=== PATIENT | male | born 1955 | race Caucasian/White ===

== ENCOUNTER 2019-06-29 10:49 | Outpatient (RCR) | payer MEDICARE, OTHER, SELFPAY | END 2019-07-27 00:01 | LOC: GILAB 10:49 | PROVIDERS: Family Provider Family Medicine; Visit Provider Internal Medicine Pulmonary Disease | DX: J45.40 Moderate persistent asthma, uncomplicated (principal); J45.50 Severe persistent asthma, uncomplicated | CPT/HCPCS: 96372 ×4; G0463 ==

== ENCOUNTER 2019-08-10 10:48 | Outpatient (RCR) | payer MEDICARE, OTHER, SELFPAY ==
[2019-08-10 11:01] VITALS: BMI 25.8
[2019-08-10 11:05] VITALS: BP 127/78; PULSE 91; RESP 18; TEMP 36.9; O2SAT 95
[2019-08-10] MEDS: omalizumab 150 mg SDV 375 MG SUBCUT (11:35)
[2019-08-24 11:11] VITALS: BP 122/79; PULSE 72; RESP 18; TEMP 36.6; O2SAT 97
[2019-08-24] MEDS: omalizumab 150 mg SDV 375 MG SUBCUT (11:19)
== END 2019-08-27 23:59 | disposition home or self-care (01) ==
LOC: GILAB 10:48
PROVIDERS: Family Provider Family Medicine; PCP Family Medicine; Visit Provider Internal Medicine Pulmonary Disease
DX: J45.40 Moderate persistent asthma, uncomplicated (principal)
CPT/HCPCS: 96372; J2357

== ENCOUNTER 2019-09-07 11:17 | Outpatient (RCR) | payer MEDICARE, OTHER, SELFPAY ==
[2019-09-07 11:32] VITALS: BP 118/77; PULSE 70; RESP 16; TEMP 36.9; O2SAT 96
[2019-09-21 11:07] VITALS: BP 144/88; PULSE 68; RESP 20; TEMP 37.2; O2SAT 95
[2019-09-21] MEDS: omalizumab 150 mg SDV 375 MG SUBCUT (11:08)
== END 2019-09-25 23:59 | disposition home or self-care (01) ==
LOC: GILAB 11:17
PROVIDERS: Family Provider Family Medicine; PCP Family Medicine; Visit Provider Internal Medicine Pulmonary Disease
DX: J45.909 Unspecified asthma, uncomplicated (principal)
CPT/HCPCS: 96372

== ENCOUNTER 2019-10-05 10:52 | Outpatient (RCR) | payer MEDICARE, OTHER, SELFPAY ==
[2019-10-05 11:14] VITALS: BP 147/79; PULSE 84; RESP 18; TEMP 36.2; O2SAT 97; BMI 25.8
[2019-10-05] MEDS: omalizumab 150 mg SDV 375 MG SUBCUT (11:21)
== END 2019-10-26 23:59 | disposition home or self-care (01) ==
LOC: GILAB 10:52
PROVIDERS: Family Provider Family Medicine; PCP Family Medicine; Visit Provider Internal Medicine Pulmonary Disease
DX: J45.909 Unspecified asthma, uncomplicated (principal)
CPT/HCPCS: 96372

== ENCOUNTER 2019-10-19 10:50 | Outpatient (CLI) | payer MEDICARE, OTHER, SELFPAY ==
[2019-10-19 11:02] VITALS: BP 119/84; PULSE 81; RESP 18; TEMP 36.6; O2SAT 97
[2019-10-19] MEDS: omalizumab 150 mg SDV 375 MG SUBCUT (11:08)
--- NOTE | 2019-10-19 11:08 | PC.NURSE ---
Administered 3 SQ injections, 2 left Lower Quad, 1 SQ Right Lower Quad. Tolerated without difficulty. Free Medication administered.
[2019-10-19 11:09] VITALS: BP 138/86; PULSE 76
== END 2019-10-19 10:51 | disposition home or self-care (01) ==
LOC: RHEOACUTE 10:51
PROVIDERS: Family Provider Family Medicine; PCP Family Medicine; Visit Provider Internal Medicine Rheumatology
DX: J45.50 Severe persistent asthma, uncomplicated (principal)
CPT/HCPCS: 96372; J2357

== ENCOUNTER 2019-11-02 10:49 | Outpatient (CLI) | payer MEDICARE, OTHER, SELFPAY ==
[2019-11-02 11:07] VITALS: BP 115/81; PULSE 71; RESP 16; TEMP 36.5; O2SAT 96
[2019-11-02] MEDS: omalizumab 150 mg SDV 375 MG SUBCUT (11:41)
[2019-11-02 11:42] VITALS: BP 119/78; PULSE 69; RESP 16
== END 2019-11-02 10:50 | disposition home or self-care (01) ==
LOC: RHEOACUTE 10:51
PROVIDERS: Family Provider Family Medicine; PCP Family Medicine; Visit Provider Internal Medicine Rheumatology
DX: J45.50 Severe persistent asthma, uncomplicated (principal)
CPT/HCPCS: 96372; J2357

== ENCOUNTER 2019-11-16 10:58 | Outpatient (CLI) | payer MEDICARE, OTHER, SELFPAY ==
[2019-11-16 11:00] VITALS: BP 121/68; PULSE 71; RESP 16; TEMP 36.8; O2SAT 95
[2019-11-16] MEDS: omalizumab 150 mg SDV 375 MG SUBCUT (11:10)
[2019-11-16 11:35] VITALS: BP 128/88; PULSE 71; RESP 16; TEMP 36.6; O2SAT 95
== END 2019-11-16 10:59 | disposition home or self-care (01) ==
LOC: RHEOACUTE 10:59
PROVIDERS: Family Provider Family Medicine; PCP Family Medicine; Visit Provider Internal Medicine Rheumatology
DX: J45.909 Unspecified asthma, uncomplicated (principal)
CPT/HCPCS: 96372; J2357

== ENCOUNTER 2019-11-30 10:42 | Outpatient (CLI) | payer MEDICARE, OTHER, SELFPAY ==
[2019-11-30 10:52] VITALS: BMI 24.7
[2019-11-30 10:54] VITALS: BP 118/92; PULSE 78; RESP 18; TEMP 37.2; O2SAT 96
[2019-11-30] MEDS: omalizumab 150 mg SDV 375 MG SUBCUT (11:09)
== END 2019-11-30 10:43 | disposition home or self-care (01) ==
LOC: OPS 10:47
PROVIDERS: Family Provider Family Medicine; PCP Family Medicine; Visit Provider Internal Medicine Pulmonary Disease
DX: J45.909 Unspecified asthma, uncomplicated (principal)
CPT/HCPCS: 96372; J2357

== ENCOUNTER 2019-12-14 10:52 | Outpatient (RCR) | payer MEDICARE, OTHER, SELFPAY ==
[2019-12-14 11:25] VITALS: BP 121/83; PULSE 72; RESP 18; TEMP 36.9; O2SAT 97
[2019-12-14] MEDS: omalizumab 150 mg SDV 375 MG SUBCUT (11:27)
== END 2019-12-26 23:59 | disposition home or self-care (01) ==
LOC: GILAB 10:52
PROVIDERS: PCP Family Medicine; Visit Provider Internal Medicine Pulmonary Disease
DX: J45.909 Unspecified asthma, uncomplicated (principal)
CPT/HCPCS: 96372

== ENCOUNTER 2020-01-25 10:49 | Outpatient (RCR) | payer MEDICARE, OTHER, SELFPAY ==
[2019-12-28 11:05] VITALS: BP 116/83; PULSE 81; RESP 16; TEMP 36.3; O2SAT 95; BMI 25.1
[2019-12-28] MEDS: omalizumab 150 mg SDV 375 MG SUBCUT (11:41)
--- NOTE | 2019-12-28 11:47 | SUR.PREOP ---
Xolair given in bilateral lower abdomen per pt request
[2020-01-11 11:28] VITALS: BP 124/83; PULSE 76; RESP 18; TEMP 37; O2SAT 97
[2020-01-11] MEDS: omalizumab 150 mg SDV 375 MG SUBCUT (11:29)
== END 2020-01-25 23:59 | disposition home or self-care (01) ==
LOC: GILAB 10:49
PROVIDERS: PCP Family Medicine; Visit Provider Internal Medicine Pulmonary Disease
DX: J45.909 Unspecified asthma, uncomplicated (principal)
CPT/HCPCS: 96372; J2357

== ENCOUNTER 2020-02-15 10:48 | Outpatient (RCR) | payer MEDICARE, OTHER, SELFPAY ==
[2020-02-01 11:11] VITALS: BP 110/80; PULSE 78; RESP 18; TEMP 37.3; O2SAT 95
[2020-02-01] MEDS: omalizumab 150 mg SDV 375 MG SUBCUT (11:23)
[2020-02-15 10:53] VITALS: BP 111/89; PULSE 84; RESP 18; TEMP 36.5; O2SAT 96
[2020-02-15] MEDS: omalizumab 150 mg SDV 375 MG SUBCUT (11:05)
== END 2020-02-25 23:59 | disposition home or self-care (01) ==
LOC: GILAB 10:48
PROVIDERS: PCP Family Medicine; Visit Provider Internal Medicine Pulmonary Disease
DX: J45.909 Unspecified asthma, uncomplicated (principal)
CPT/HCPCS: 96372; J2357

== ENCOUNTER → 2020-03-16 10:51 | Day surgery (SDC) | payer MEDICARE, OTHER, SELFPAY ==
[2020-03-16 11:09] VITALS: BP 114/79; PULSE 75; RESP 18; TEMP 36.7; O2SAT 97
[2020-03-16] MEDS: omalizumab 150 mg SDV 375 MG SUBCUT (11:23)
--- NOTE | 2020-03-16 12:27 | SUR.PREOP ---
1109 Xolair 375 mg subcutaneous to LLQ given as ordered. Medication supplied to patient from [facility] at no cost to patient.
== END ==
PROVIDERS: PCP Family Medicine; Visit Provider Internal Medicine Pulmonary Disease
DX: J45.50 Severe persistent asthma, uncomplicated (principal)
CPT/HCPCS: 96372; J2357

== ENCOUNTER 2020-04-13 10:51 | Outpatient (RCR) | payer MEDICARE, OTHER, SELFPAY ==
[2020-03-30] MEDS: omalizumab 150 mg SDV 375 MG SUBCUT (11:24)
[2020-03-30 11:25] VITALS: BP 132/83; PULSE 70; RESP 18; TEMP 37; O2SAT 96; BMI 25.1
[2020-04-13 11:09] VITALS: BP 162/74; PULSE 64; RESP 18; TEMP 37.2; O2SAT 97
--- NOTE | 2020-04-13 11:10 | SUR.PREOP ---
Xoliar 375 mg Subcutaneous given via three injections with pre-filled syringes sent from [facility] pharmacy. patient tolerated well. no bleeding noted at injections sites.
== END 2020-04-26 23:59 | disposition home or self-care (01) ==
LOC: OPS 10:51
PROVIDERS: PCP Family Medicine; Visit Provider Internal Medicine Pulmonary Disease
DX: J45.50 Severe persistent asthma, uncomplicated (principal)
CPT/HCPCS: 96372; J2357

== ENCOUNTER 2020-05-25 10:51 | Outpatient (RCR) | payer MEDICARE, OTHER, SELFPAY ==
[2020-04-27 11:39] VITALS: BMI 24.3
[2020-04-27 11:40] VITALS: BP 132/91; PULSE 76; RESP 18; TEMP 36.7; O2SAT 96
--- NOTE | 2020-04-27 11:41 | SUR.OPER ---
patient recieved 3 injections of Xolair SQ to total 375mg. patient receives this medication free through a jane.
[2020-05-11 11:14] VITALS: BP 115/75; PULSE 67; RESP 18; TEMP 36.4; O2SAT 96
--- NOTE | 2020-05-11 11:17 | PC.NURSE ---
xolair injections given in abdomen RLQ and LLQ subq total of 375 mg
[2020-05-25 12:08] VITALS: BP 126/90; PULSE 77; RESP 18; TEMP 37.1; O2SAT 97
== END 2020-05-27 23:59 | disposition home or self-care (01) ==
LOC: OPS 10:51
PROVIDERS: PCP Family Medicine; Visit Provider Internal Medicine Pulmonary Disease
DX: J44.9 Chronic obstructive pulmonary disease, unspecified (principal)
CPT/HCPCS: 96372

== ENCOUNTER 2020-06-26 16:41 | Outpatient (RCR) | payer MEDICARE, OTHER, SELFPAY ==
[2020-06-08 11:57] VITALS: BP 138/88; PULSE 76; RESP 18; TEMP 36.7; O2SAT 96
[2020-06-23 09:36] VITALS: BP 125/84; PULSE 73; RESP 18; TEMP 36.6; O2SAT 97
--- NOTE | 2020-06-23 10:10 | SUR.OPER ---
when pharmacy was called to dispense Xolair 375mg sq, they stated they only had 300mg total for this patient. Patient informed, and he stated that due to insurance requirements he has to receive the exact dose ordered or they would not pay. pharmacy stated they would order additional amount and would inform out patient department of medication arrival next week, so patient could be called to return for correct dosage administration. Patient informed and agreed to return when called.
[2020-06-26 17:33] VITALS: BP 149/84; PULSE 88; RESP 18; TEMP 36.7; O2SAT 98; BMI 21.5
--- NOTE | 2020-06-26 17:36 | SUR.PREOP ---
150mg given in Left abdomen SQ, 225mg given in Right abdomen SQ
== END 2020-06-26 23:59 | disposition home or self-care (01) ==
LOC: OPS 16:41
PROVIDERS: PCP Family Medicine; Visit Provider Internal Medicine Pulmonary Disease
DX: J44.9 Chronic obstructive pulmonary disease, unspecified (principal)
CPT/HCPCS: 96372

== ENCOUNTER 2020-07-24 11:00 | Outpatient (RCR) | payer MEDICARE, BC, SELFPAY ==
--- NOTE | 2020-07-24 11:08 | PC.NURSE ---
3 subcutaneous injection were given in the abdomen. 150mg xolair in the RLQ 225mg in LLQ. Xolair expiration dates were January 2021. lot #s: [id number]; [id number]
== END 2020-07-24 15:00 | disposition home or self-care (01) ==
LOC: OPS 11:00
PROVIDERS: PCP Family Medicine; Visit Provider Internal Medicine Pulmonary Disease
DX: J45.40 Moderate persistent asthma, uncomplicated (principal)
CPT/HCPCS: 96372

== ENCOUNTER 2020-07-24 11:26 | Outpatient (RCR) | payer MEDICARE, OTHER, SELFPAY ==
--- NOTE | 2020-07-10 11:26 | SUR.PREOP ---
xolair 375mg given in 3 injections SQ abdomen.
[2020-07-10 11:27] VITALS: BP 114/84; PULSE 74; RESP 18; TEMP 36.6; O2SAT 96; BMI 24.8
== END 2020-07-27 23:59 | disposition home or self-care (01) ==
LOC: OPS 11:26
PROVIDERS: PCP Family Medicine; Visit Provider Internal Medicine Pulmonary Disease
DX: J45.50 Severe persistent asthma, uncomplicated (principal)
CPT/HCPCS: 96372

== ENCOUNTER 2020-08-21 10:54 | Outpatient (RCR) | payer MEDICARE, BC, SELFPAY ==
[2020-08-07 11:20] VITALS: BP 141/83; PULSE 73; RESP 20; TEMP 36.9; O2SAT 98
--- NOTE | 2020-08-07 11:44 | SUR.PREOP ---
1122 Xolair 375 mg subcutaneous given to right and left lower quadrants as 3 separate injections. Pt tolerated well.
[2020-08-21 11:05] VITALS: BP 129/88; PULSE 99; RESP 20; TEMP 36.9; O2SAT 97
--- NOTE | 2020-08-21 11:51 | PC.NURSE ---
1110 Xolair 375 mg given as three injections subcutaneously to right and left lower quadrants. Pt tolerated well.
== END 2020-08-27 23:59 | disposition home or self-care (01) ==
LOC: OPS 10:54
PROVIDERS: PCP Family Medicine; Visit Provider Internal Medicine Pulmonary Disease
DX: J45.50 Severe persistent asthma, uncomplicated (principal)
CPT/HCPCS: 96372

== ENCOUNTER 2020-09-18 10:56 | Outpatient (RCR) | payer MEDICARE, BC, SELFPAY ==
[2020-09-04 11:15] VITALS: BP 124/97; PULSE 80; RESP 18; TEMP 37.1; O2SAT 99
--- NOTE | 2020-09-04 11:44 | PC.NURSE ---
1120 Xolair 375 mg subcutaneous given as 3 injections into right and left lower quadrant. Pt tolerated well.
--- NOTE | 2020-09-18 11:12 | PC.NURSE ---
1110 Xolair 375 mg subcutaneous given as 3 separate injections to left and right lower quadrant. Pt tolerated well.
[2020-09-18 11:13] VITALS: BP 128/80; PULSE 74; RESP 18; TEMP 36.8; O2SAT 100
== END 2020-09-24 23:59 | disposition home or self-care (01) ==
LOC: OPS 10:56
PROVIDERS: PCP Family Medicine; Visit Provider Internal Medicine Pulmonary Disease
DX: J45.50 Severe persistent asthma, uncomplicated (principal)
CPT/HCPCS: 96372

== ENCOUNTER 2020-10-16 10:46 | Outpatient (RCR) | payer MEDICARE, BC, SELFPAY ==
[2020-10-02 11:22] VITALS: BP 125/83; PULSE 72; RESP 20; TEMP 36.7; O2SAT 99
[2020-10-02] MEDS: omalizumab 150 mg SDV 375 MG SUBCUT (11:23)
[2020-10-16 11:02] VITALS: BP 126/80; PULSE 77; RESP 18; TEMP 36.7; O2SAT 98
[2020-10-16] MEDS: omalizumab 150 mg SDV 375 MG SUBCUT (11:18)
== END 2020-10-25 23:59 | disposition home or self-care (01) ==
LOC: GILAB 10:46
PROVIDERS: PCP Family Medicine; Visit Provider Internal Medicine Pulmonary Disease
DX: J45.50 Severe persistent asthma, uncomplicated (principal)
CPT/HCPCS: 96372; J2357

== ENCOUNTER 2020-11-13 11:57 | Outpatient (RCR) | payer MEDICARE, BC, SELFPAY ==
[2020-10-30 11:17] VITALS: BP 165/90; PULSE 66; RESP 18; TEMP 36.1; O2SAT 98
[2020-10-30] MEDS: omalizumab 150 mg SDV 375 MG SUBCUT (11:17)
[2020-11-13 10:57] VITALS: BP 137/81; PULSE 67; RESP 18; TEMP 36.4; O2SAT 98
[2020-11-13] MEDS: omalizumab 150 mg SDV 375 MG SUBCUT (10:58)
== END 2020-11-24 23:59 | disposition home or self-care (01) ==
LOC: GILAB 11:57
PROVIDERS: PCP Family Medicine; Visit Provider Internal Medicine Pulmonary Disease
DX: J45.50 Severe persistent asthma, uncomplicated (principal)
CPT/HCPCS: 96372; J2357

== ENCOUNTER 2020-12-25 08:47 | Outpatient (RCR) | payer MEDICARE, BC, SELFPAY ==
[2020-11-27 11:15] VITALS: BP 136/79; PULSE 68; RESP 18; TEMP 36.7; O2SAT 98
[2020-11-27] MEDS: omalizumab 150 mg SDV 375 MG SUBCUT (11:16)
[2020-12-11] MEDS: omalizumab 150 mg SDV 375 MG SUBCUT (10:59)
[2020-12-11 11:00] VITALS: BP 136/85; PULSE 64; RESP 18; TEMP 36.8; O2SAT 98
[2020-12-25 08:57] VITALS: BP 123/80; PULSE 71; RESP 18; TEMP 36.7; O2SAT 97
[2020-12-25] MEDS: omalizumab 150 mg SDV 375 MG SUBCUT (09:05)
== END 2020-12-25 23:59 | disposition home or self-care (01) ==
LOC: GILAB 08:47
PROVIDERS: PCP Family Medicine; Visit Provider Internal Medicine Pulmonary Disease
DX: J45.50 Severe persistent asthma, uncomplicated (principal)
CPT/HCPCS: 96372; J2357

== ENCOUNTER 2021-01-22 10:52 | Outpatient (RCR) | payer MEDICARE, BC, SELFPAY ==
[2021-01-08 11:05] VITALS: BP 136/86; PULSE 74; RESP 18; TEMP 36.8; O2SAT 96
[2021-01-08] MEDS: omalizumab 150 mg SDV 375 MG SUBCUT (11:08)
[2021-01-22 11:00] VITALS: BP 129/83; PULSE 75; RESP 18; TEMP 37; O2SAT 97
[2021-01-22] MEDS: omalizumab 150 mg SDV 375 MG SUBCUT (11:01)
--- NOTE | 2021-01-22 11:09 | PC.NURSE ---
Xolair 375 mg total given as three separate injections (150 mg LLQ, 150 mg RLQ, and 75 mg LLQ).
== END 2021-01-24 23:59 | disposition home or self-care (01) ==
LOC: GILAB 10:52
PROVIDERS: PCP Family Medicine; Visit Provider Internal Medicine Pulmonary Disease
DX: J45.50 Severe persistent asthma, uncomplicated (principal)
CPT/HCPCS: 96372; J2357

== ENCOUNTER 2021-02-19 10:49 | Outpatient (RCR) | payer MEDICARE, BC, SELFPAY ==
[2021-02-05 11:05] VITALS: BP 129/84; PULSE 65; RESP 18; TEMP 36.3; O2SAT 97
[2021-02-05] MEDS: omalizumab 150 mg SDV SUBCUT ×2 (11:08→11:09)
[2021-02-05] MEDS: omalizumab 150 mg SDV 75 MG SUBCUT (11:09)
[2021-02-19 10:45] VITALS: BP 134/87; PULSE 69; RESP 18; TEMP 36.6; O2SAT 97
[2021-02-19] MEDS: omalizumab 150 mg SDV 75 MG SUBCUT (10:53)
[2021-02-19] MEDS: omalizumab 150 mg SDV SUBCUT ×2 (10:53)
== END 2021-02-24 23:59 | disposition home or self-care (01) ==
LOC: GILAB 10:49
PROVIDERS: PCP Family Medicine; Visit Provider Internal Medicine Pulmonary Disease
DX: J45.50 Severe persistent asthma, uncomplicated (principal)
CPT/HCPCS: 96372; J2357

== ENCOUNTER 2021-03-19 09:49 | Outpatient (RCR) | payer MEDICARE, BC, SELFPAY ==
[2021-03-05 11:01] VITALS: BP 140/74; PULSE 65; RESP 18; TEMP 36.8; O2SAT 97
[2021-03-05] MEDS: omalizumab 150 mg SDV SUBCUT ×2 (11:03→11:05)
[2021-03-05] MEDS: omalizumab 150 mg SDV 75 MG SUBCUT (11:04)
[2021-03-19 09:57] VITALS: BP 129/79; PULSE 70; RESP 18; TEMP 36.3; O2SAT 98
[2021-03-19] MEDS: omalizumab 150 mg SDV SUBCUT ×2 (10:00)
[2021-03-19] MEDS: omalizumab 150 mg SDV 75 MG SUBCUT (10:01)
== END 2021-03-27 23:59 | disposition home or self-care (01) ==
LOC: GILAB 09:49
PROVIDERS: PCP Family Medicine; Visit Provider Internal Medicine Pulmonary Disease
DX: J45.50 Severe persistent asthma, uncomplicated (principal)
CPT/HCPCS: 96372; J2357

== ENCOUNTER 2021-04-16 10:51 | Outpatient (RCR) | payer MEDICARE, BC, SELFPAY ==
[2021-04-03 10:45] VITALS: BP 108/79; PULSE 64; RESP 18; TEMP 36.8; O2SAT 96
[2021-04-03] MEDS: omalizumab 150 mg SDV 75 MG SUBCUT (10:47)
[2021-04-03] MEDS: omalizumab 150 mg SDV SUBCUT ×2 (10:47)
[2021-04-16 10:55] VITALS: BP 111/77; PULSE 67; RESP 18; TEMP 36.6; O2SAT 98
[2021-04-16] MEDS: omalizumab 150 mg SDV SUBCUT ×2 (10:57→10:58)
[2021-04-16] MEDS: omalizumab 150 mg SDV 75 MG SUBCUT (10:59)
== END 2021-04-26 23:59 | disposition home or self-care (01) ==
LOC: GILAB 10:51
PROVIDERS: PCP Family Medicine; Visit Provider Internal Medicine Pulmonary Disease
DX: J45.50 Severe persistent asthma, uncomplicated (principal)
CPT/HCPCS: 96372; J2357

== ENCOUNTER 2021-05-14 11:33 | Outpatient (RCR) | payer MEDICARE, BC, SELFPAY ==
[2021-04-30] MEDS: omalizumab 150 mg SDV SUBCUT ×2 (11:00)
[2021-04-30] MEDS: omalizumab 150 mg SDV 75 MG SUBCUT (11:01)
[2021-04-30 11:05] VITALS: BP 144/82; PULSE 60; RESP 18; TEMP 36.3; O2SAT 98
[2021-05-14 11:05] VITALS: BP 122/86; PULSE 70; RESP 18; TEMP 37; O2SAT 98
[2021-05-14] MEDS: omalizumab 150 mg SDV SUBCUT ×2 (11:08→11:09)
[2021-05-14] MEDS: omalizumab 150 mg SDV 75 MG SUBCUT (11:09)
== END 2021-05-27 23:59 | disposition home or self-care (01) ==
LOC: GILAB 11:33
PROVIDERS: PCP Family Medicine; Visit Provider Internal Medicine Pulmonary Disease
DX: J45.50 Severe persistent asthma, uncomplicated (principal)
CPT/HCPCS: 96372; J2357

== ENCOUNTER 2021-06-25 10:41 | Outpatient (RCR) | payer MEDICARE, BC, SELFPAY ==
[2021-05-28] MEDS: omalizumab 150 mg SDV SUBCUT ×2 (11:23)
[2021-05-28] MEDS: omalizumab 150 mg SDV 75 MG SUBCUT (11:23)
[2021-05-28 11:25] VITALS: BP 115/74; PULSE 75; RESP 18; TEMP 36.4; O2SAT 96
[2021-06-11 10:47] VITALS: BP 112/76; PULSE 71; RESP 18; TEMP 36.5; O2SAT 98
[2021-06-11] MEDS: omalizumab 150 mg SDV 75 MG SUBCUT (10:51)
[2021-06-11] MEDS: omalizumab 150 mg SDV SUBCUT ×2 (10:52)
[2021-06-25 10:45] VITALS: BP 128/74; PULSE 78; RESP 18; TEMP 36.6; O2SAT 97
[2021-06-25] MEDS: omalizumab 150 mg/mL SYR SUBCUT ×2 (10:50→10:51)
[2021-06-25] MEDS: omalizumab 150 mg/mL SYR 75 MG SUBCUT (10:51)
== END 2021-06-26 23:59 | disposition home or self-care (01) ==
LOC: GILAB 10:41
PROVIDERS: PCP Family Medicine; Visit Provider Internal Medicine Pulmonary Disease
DX: J45.50 Severe persistent asthma, uncomplicated (principal)
CPT/HCPCS: 96372; J2357

== ENCOUNTER 2021-07-23 10:53 | Outpatient (RCR) | payer MEDICARE, BC, SELFPAY ==
[2021-07-09 11:10] VITALS: BP 110/94; PULSE 82; RESP 18; TEMP 36.7; O2SAT 97
[2021-07-09] MEDS: omalizumab 150 mg/mL SYR SUBCUT ×2 (11:15→11:16)
[2021-07-09] MEDS: omalizumab 150 mg/mL SYR 75 MG SUBCUT (11:16)
[2021-07-23 10:55] VITALS: BP 124/73; PULSE 108; RESP 18; TEMP 37.6; O2SAT 96
[2021-07-23] MEDS: omalizumab 150 mg/mL SYR SUBCUT ×2 (11:00)
[2021-07-23] MEDS: omalizumab 150 mg/mL SYR 75 MG SUBCUT (11:00)
== END 2021-07-27 23:59 | disposition home or self-care (01) ==
LOC: GILAB 10:53
PROVIDERS: PCP Family Medicine; Visit Provider Internal Medicine Pulmonary Disease
DX: J45.50 Severe persistent asthma, uncomplicated (principal)
CPT/HCPCS: 96372; J2357

== ENCOUNTER 2021-08-20 10:47 | Outpatient (RCR) | payer MEDICARE, BC, SELFPAY ==
[2021-08-06 10:55] VITALS: BP 143/78; PULSE 70; RESP 18; TEMP 36.6; O2SAT 97
[2021-08-06] MEDS: omalizumab 150 mg/mL SYR SUBCUT ×2 (10:59→11:00)
[2021-08-06] MEDS: omalizumab 150 mg/mL SYR 75 MG SUBCUT (11:00)
[2021-08-20] MEDS: omalizumab 150 mg/mL SYR SUBCUT ×2 (10:53→10:54)
[2021-08-20] MEDS: omalizumab 150 mg/mL SYR 75 MG SUBCUT (10:54)
[2021-08-20 11:24] VITALS: BP 147/86; PULSE 71; RESP 18; TEMP 36.3; O2SAT 97
== END 2021-08-27 23:59 | disposition home or self-care (01) ==
LOC: GILAB 10:47
PROVIDERS: PCP Family Medicine; Visit Provider Internal Medicine Pulmonary Disease
DX: J45.50 Severe persistent asthma, uncomplicated (principal)
CPT/HCPCS: 96372; J2357

== ENCOUNTER 2021-09-17 10:43 | Outpatient (RCR) | payer MEDICARE, BC, SELFPAY ==
[2021-09-03 11:10] VITALS: BP 168/93; PULSE 72; RESP 18; TEMP 36.9; O2SAT 96
[2021-09-03] MEDS: omalizumab 150 mg/mL SYR SUBCUT ×2 (11:18)
[2021-09-03] MEDS: omalizumab 150 mg/mL SYR 75 MG SUBCUT (11:18)
[2021-09-17 10:45] VITALS: BP 129/89; PULSE 80; RESP 18; TEMP 36.8; O2SAT 96
[2021-09-17] MEDS: omalizumab 150 mg/mL SYR SUBCUT ×2 (10:49→10:50)
[2021-09-17] MEDS: omalizumab 150 mg/mL SYR 75 MG SUBCUT (10:50)
== END 2021-09-24 23:59 | disposition home or self-care (01) ==
LOC: GILAB 10:43
PROVIDERS: PCP Family Medicine; Visit Provider Internal Medicine Pulmonary Disease
DX: J45.50 Severe persistent asthma, uncomplicated (principal)
CPT/HCPCS: 96372; J2357

== ENCOUNTER 2021-10-15 11:10 | Outpatient (RCR) | payer MEDICARE, BC, SELFPAY ==
[2021-10-01 10:55] VITALS: BP 138/73; PULSE 63; RESP 18; TEMP 36.4; O2SAT 98
[2021-10-01] MEDS: omalizumab 150 mg/mL SYR SUBCUT ×2 (10:59→11:00)
[2021-10-01] MEDS: omalizumab 150 mg/mL SYR 75 MG SUBCUT (11:00)
[2021-10-15 11:00] VITALS: BP 119/92; PULSE 72; RESP 18; TEMP 36.4; O2SAT 98
[2021-10-15] MEDS: omalizumab 150 mg/mL SYR SUBCUT ×2 (11:04)
[2021-10-15] MEDS: omalizumab 150 mg/mL SYR 75 MG SUBCUT (11:05)
== END 2021-10-25 23:59 | disposition home or self-care (01) ==
LOC: GILAB 11:10
PROVIDERS: PCP Family Medicine; Visit Provider Internal Medicine Pulmonary Disease
DX: J45.50 Severe persistent asthma, uncomplicated (principal)
CPT/HCPCS: 96372; J2357

== ENCOUNTER 2021-11-12 09:48 | Outpatient (RCR) | payer MEDICARE, BC, SELFPAY ==
[2021-10-29] MEDS: omalizumab 150 mg/mL SYR 75 MG SUBCUT (10:10)
[2021-10-29] MEDS: omalizumab 150 mg/mL SYR SUBCUT ×2 (10:10)
[2021-10-29 10:24] VITALS: BP 146/81; PULSE 61; RESP 18; TEMP 36.4; O2SAT 97
[2021-11-12] MEDS: omalizumab 150 mg/mL SYR 75 MG SUBCUT (09:53)
[2021-11-12] MEDS: omalizumab 150 mg/mL SYR SUBCUT ×2 (09:53)
[2021-11-12 10:00] VITALS: BP 124/75; PULSE 68; RESP 18; TEMP 36.4; O2SAT 98
== END 2021-11-24 23:59 | disposition home or self-care (01) ==
LOC: GILAB 09:48
PROVIDERS: PCP Family Medicine; Visit Provider Internal Medicine Pulmonary Disease
DX: J45.50 Severe persistent asthma, uncomplicated (principal)
CPT/HCPCS: 96372; J2357

== ENCOUNTER 2021-12-25 10:50 | Outpatient (RCR) | payer MEDICARE, BC, SELFPAY ==
[2021-11-26] MEDS: omalizumab 150 mg/mL SYR 75 MG SUBCUT (10:01)
[2021-11-26] MEDS: omalizumab 150 mg/mL SYR SUBCUT ×2 (10:01)
[2021-11-26 10:13] VITALS: BP 116/87; PULSE 70; RESP 18; TEMP 36.5; O2SAT 99
[2021-12-10] MEDS: omalizumab 150 mg/mL SYR SUBCUT ×2 (10:58→10:59)
[2021-12-10] MEDS: omalizumab 150 mg/mL SYR 75 MG SUBCUT (10:59)
[2021-12-10 11:09] VITALS: BP 118/78; PULSE 70; RESP 18; TEMP 36.6; O2SAT 96
[2021-12-25 10:53] VITALS: BP 139/79; PULSE 69; RESP 18; TEMP 36.8; O2SAT 95
[2021-12-25] MEDS: omalizumab 150 mg/mL SYR SUBCUT ×2 (10:54)
[2021-12-25] MEDS: omalizumab 150 mg/mL SYR 75 MG SUBCUT (10:55)
== END 2021-12-25 23:59 | disposition home or self-care (01) ==
LOC: GILAB 10:50
PROVIDERS: PCP Family Medicine; Visit Provider Internal Medicine Pulmonary Disease
DX: J45.50 Severe persistent asthma, uncomplicated (principal)
CPT/HCPCS: 96372; J2357

== ENCOUNTER 2022-01-21 10:47 | Outpatient (RCR) | payer MEDICARE, BC, SELFPAY ==
[2022-01-07 10:50] VITALS: BP 134/80; PULSE 83; RESP 18; TEMP 37.1; O2SAT 95
[2022-01-07] MEDS: omalizumab 150 mg/mL SYR SUBCUT ×2 (10:56)
[2022-01-07] MEDS: omalizumab 150 mg/mL SYR 75 MG SUBCUT (10:57)
[2022-01-21] MEDS: omalizumab 150 mg/mL SYR SUBCUT ×2 (10:52→10:53)
[2022-01-21] MEDS: omalizumab 150 mg/mL SYR 75 MG SUBCUT (10:53)
[2022-01-21 11:01] VITALS: BP 137/79; PULSE 71; RESP 18; TEMP 36.9; O2SAT 97
== END 2022-01-24 23:59 | disposition home or self-care (01) ==
LOC: GILAB 10:47
PROVIDERS: PCP Family Medicine; Visit Provider Internal Medicine Pulmonary Disease
DX: J45.50 Severe persistent asthma, uncomplicated (principal)
CPT/HCPCS: 96372; J2357

== ENCOUNTER 2022-02-18 10:49 | Outpatient (RCR) | payer MEDICARE, BC, SELFPAY ==
[2022-02-04 10:55] VITALS: BP 147/87; PULSE 69; RESP 18; TEMP 37; O2SAT 96
[2022-02-04] MEDS: omalizumab 150 mg/mL SYR SUBCUT ×2 (10:56→10:57)
[2022-02-04] MEDS: omalizumab 150 mg/mL SYR 75 MG SUBCUT (10:57)
[2022-02-18 10:50] VITALS: BP 132/74; PULSE 73; RESP 18; TEMP 36.9; O2SAT 96
[2022-02-18] MEDS: omalizumab 150 mg/mL SYR SUBCUT ×2 (10:53→10:54)
[2022-02-18] MEDS: omalizumab 150 mg/mL SYR 75 MG SUBCUT (10:54)
== END 2022-02-24 23:59 | disposition home or self-care (01) ==
LOC: GILAB 10:49
PROVIDERS: PCP Family Medicine; Visit Provider Internal Medicine Pulmonary Disease
DX: J45.50 Severe persistent asthma, uncomplicated (principal)
CPT/HCPCS: 96372; J2357

== ENCOUNTER 2022-03-18 10:55 | Outpatient (RCR) | payer MEDICARE, BC, SELFPAY ==
[2022-03-04] MEDS: omalizumab 150 mg/mL SYR SUBCUT ×2 (11:01)
[2022-03-04 11:02] VITALS: BP 133/91; PULSE 83; RESP 18; TEMP 37.1; O2SAT 97
[2022-03-04] MEDS: omalizumab 150 mg/mL SYR 75 MG SUBCUT (11:02)
[2022-03-18] MEDS: omalizumab 150 mg/mL SYR SUBCUT ×2 (11:00)
[2022-03-18] MEDS: omalizumab 150 mg/mL SYR 75 MG SUBCUT (11:01)
[2022-03-18 11:08] VITALS: BP 137/86; PULSE 94; RESP 20; TEMP 36.7; O2SAT 97
== END 2022-03-27 23:59 | disposition home or self-care (01) ==
LOC: GILAB 10:55
PROVIDERS: PCP Family Medicine; Visit Provider Internal Medicine Pulmonary Disease
DX: J45.50 Severe persistent asthma, uncomplicated (principal)
CPT/HCPCS: 96372; J2357

== ENCOUNTER 2022-04-15 11:06 | Outpatient (RCR) | payer MEDICARE, BC, SELFPAY ==
[2022-04-02 10:55] VITALS: BP 115/81; PULSE 100; RESP 18; TEMP 37.4; O2SAT 97
[2022-04-02] MEDS: omalizumab 150 mg/mL SYR SUBCUT ×2 (10:58)
[2022-04-15 10:55] VITALS: BP 160/94; PULSE 88; RESP 18; TEMP 37.2; O2SAT 97
[2022-04-15] MEDS: omalizumab 150 mg/mL SYR SUBCUT ×2 (10:57)
== END 2022-04-26 23:59 | disposition home or self-care (01) ==
LOC: GILAB 11:06
PROVIDERS: PCP Family Medicine; Visit Provider Internal Medicine Pulmonary Disease
DX: J45.50 Severe persistent asthma, uncomplicated (principal)
CPT/HCPCS: 96372; J2357

== ENCOUNTER 2022-05-27 10:57 | Outpatient (RCR) | payer MEDICARE, BC, SELFPAY ==
[2022-04-29 11:00] VITALS: BP 151/81; PULSE 62; RESP 18; TEMP 36.6; O2SAT 98
[2022-04-29] MEDS: omalizumab 150 mg/mL SYR SUBCUT ×2 (11:00)
[2022-05-13 10:55] VITALS: BP 139/73; PULSE 60; RESP 18; TEMP 36.4; O2SAT 99
[2022-05-13] MEDS: omalizumab 150 mg/mL SYR SUBCUT ×2 (10:56)
[2022-05-27] MEDS: omalizumab 150 mg/mL SYR SUBCUT ×2 (10:56)
[2022-05-27 11:05] VITALS: BP 135/82; PULSE 78; RESP 18; TEMP 36.8; O2SAT 97
== END 2022-05-27 23:59 | disposition home or self-care (01) ==
LOC: GILAB 10:57
PROVIDERS: PCP Family Medicine; Visit Provider Internal Medicine Pulmonary Disease
DX: J45.50 Severe persistent asthma, uncomplicated (principal)
CPT/HCPCS: 96372; J2357

== ENCOUNTER 2022-06-24 10:54 | Outpatient (RCR) | payer MEDICARE, BC, SELFPAY ==
[2022-06-10 10:30] VITALS: BP 119/83; PULSE 82; RESP 18; TEMP 36.7; O2SAT 97
[2022-06-10] MEDS: omalizumab 150 mg/mL SYR SUBCUT ×2 (10:33)
[2022-06-24 11:10] VITALS: BP 121/79; PULSE 71; RESP 18; TEMP 36.8; O2SAT 97
[2022-06-24] MEDS: omalizumab 150 mg/mL SYR SUBCUT ×2 (11:17)
== END 2022-06-26 23:59 | disposition home or self-care (01) ==
LOC: GILAB 10:54
PROVIDERS: PCP Family Medicine; Visit Provider Internal Medicine Pulmonary Disease
DX: J45.50 Severe persistent asthma, uncomplicated (principal)
CPT/HCPCS: 96372; J2357

== ENCOUNTER 2022-07-23 10:45 | Outpatient (RCR) | payer MEDICARE, BC, SELFPAY ==
[2022-07-08 11:10] VITALS: BP 129/99; PULSE 76; RESP 18; TEMP 36.8; O2SAT 96
[2022-07-08] MEDS: omalizumab 150 mg/mL SYR SUBCUT ×2 (11:19)
[2022-07-23] MEDS: omalizumab 150 mg/mL SYR SUBCUT ×2 (11:07)
[2022-07-23 11:11] VITALS: BP 128/81; PULSE 80; RESP 18; TEMP 36.6; O2SAT 96
== END 2022-07-27 23:59 | disposition home or self-care (01) ==
LOC: GILAB 10:45
PROVIDERS: PCP Family Medicine; Visit Provider Internal Medicine Pulmonary Disease
DX: J45.50 Severe persistent asthma, uncomplicated (principal)
CPT/HCPCS: 96372; J2357

== ENCOUNTER 2022-08-12 18:59 | Emergency (ER) | payer MEDICARE, BC, SELFPAY ==
[2022-08-12 19:01] VITALS: BP 136/94; PULSE 122; RESP 20; TEMP 37.4; O2SAT 97
--- NOTE | 2022-08-12 19:14 | XRR_ITS ---
PROCEDURE INFORMATION: Exam: XR Chest Exam date and time: 08/12/2022 7:40 PM Age: 66 years old Clinical indication: Shortness of breath and wheezing; Patient HX: HX copd; Additional info: Cp TECHNIQUE: Imaging protocol: Radiologic exam of the chest. Views: 1 view. COMPARISON: CR XR chest 2V* [id number] 08/25/2020 1:53 PM FINDINGS: Lungs: Moderate COPD. A few minute calcified lung nodules are seen incidentally. No consolidation. Pleural spaces: Unremarkable. No definite pleural effusion. No pneumothorax. Small amount of left CP angle blunting, likely from scarring. Heart/Mediastinum: Unremarkable. No cardiomegaly. Bones/joints: Unremarkable. XR/XR chest 1V portable [id number] IMPRESSION: 1. No acute findings. 2. Stable chest from 08/25/2020.
--- NOTE | 2022-08-12 19:14 | ECG_ITS ---
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 Measurements Intervals [place] Rate: 98 P: 78 RI: 120 QRS: 112 QRSD: 92 T: 64 QT: 325 QTc: 415 Interpretive Statements SINUS RHYTHM WITH MARKED SINUS ARRHYTHMIA INCOMPLETE RIGHT BUNDLE BRANCH BLOCK [90+ ms QRS DURATION, TERMINAL R IN V1/V2, 40+ ms S IN I/aVL/V4/V5/V6] POSSIBLE RIGHT VENTRICULAR HYPERTROPHY [SOME/ALL OF: PROMINENT R IN V1, LATE TRANSITION, RAD, AKBAR, SSS] Compared to ECG 12/27/2017 22:54:00 Incomplete right bundle-branch block now present Sinus tachycardia no longer present Electronically Signed On 08-13-2022 14:45:54 AIR CONDITIONING UNIT TESTER by Jacob Gibson M.D. [id number]
[2022-08-12 19:27] LABS: Basophils # 0.1 10^3/uL (0.0-0.1); Basophils % 0.6 %; Eosinophils # 0.5 10^3/uL (0.0-0.8); Eosinophils % 4.8 %; Hematocrit 46.1 % (42.0-52.0); Hemoglobin 15.5 g/dL (11.7-16.6); Lymphocytes # 2.6 10^3/uL (0.8-4.8); Lymphocytes % 23.7 %; Mean Corpuscular HGB Conc 33.6 g/dL (30.0-36.0); Mean Corpuscular Hemoglobin 31.1 pg (28.0-34.0); Mean Corpuscular Volume 92.6 fl (80-94); Mean Platelet Volume 9.9 fL (7.4-10.4); Monocytes # 0.5 10^3/uL (0.2-0.9); Monocytes % 4.5 %; Neutrophils # 7.27 10^3/uL (1.8-7.7); Neutrophils % 66.2 %; Nucleated Red Blood Cells % 0 %; Platelet Count 249 10^3/cmm (130-400); Red Blood Count 4.98 10^6/uL (4.1-5.3); Red Cell Distribution Width 12.8 % (12.1-15.1)
[2022-08-12 19:29] VITALS: PULSE 114; RESP 30; O2SAT 96
[2022-08-12] MEDS: ipratropium 0.5 mg/2.5 mL Neb INHALATION (19:29)
[2022-08-12] MEDS: albuterol 2.5 mg/3 mL Neb INHALATION (19:29)
[2022-08-12 19:31] VITALS: PULSE 126
--- NOTE | 2022-08-12 19:31 | W.ED.CHESTPA ---
HPI - Chest Pain General: Chief Complaint: Chest Pain Stated Complaint: SOB Time Seen by Provider: 08/12/22 19:01 Source: patient Mode of arrival: ambulatory Limitations: no limitations History of Present Illness: 66-year-old male has extensive history of COPD states has been having cough along with increasing wheezing but he states that today he developed a sharp left-sided chest pain. Patient does has wheezing here along with some tachypnea he is not hypoxic he denies any cough he had a low-grade fever but denies any fever at home denies any worsening proving factors. Associated symptoms: Reports dyspnea; Deny abdominal pain, fever(s), nausea or vomiting Review of Systems Const: Denies: fever(s), chills, body aches or change in appetite Eyes: Denies: blurry vision or eye discomfort ENMT: Denies: throat pain or dental pain Card: Reports: chest pain Resp: Reports: dyspnea, non-productive cough and wheezing GI: Denies: abdominal pain, nausea, vomiting or diarrhea : Denies: dysuria Musc: Denies: neck pain or back pain Skin/Breast: Denies: rash Neuro: Denies: headache(s) Psych: Denies: depression True/Lymph: Denies: easy bruising All/Imm: Denies: urticaria PFSH ED PFSH: Medical History (Updated 08/12/22 @ 21:56 by Quinn Salgado MD) Asthma Social History (Updated 08/12/22 @ 21:56 by Quinn Salgado MD) Smoking and tobacco status: former smoker Physical Exam Const: COMMON NORMALS: patient oriented x3 GENERAL APPEARANCE: ill appearing HENMT: COMMON NORMALS: normocephalic and atraumatic HEAD & SCALP: normocephalic and atraumatic Eye: COMMON NORMALS: Equal, round and reactive pupils present and EOMs intact bilaterally PUPIL: Yes Equal, round and reactive pupils present Neck/C-Spine: COMMON NORMALS: full ROM and supple Chest: COMMONS NORMALS: normal inspection of the chest and normal palpation of entire chest wall Resp: COMMON NORMALS: No retractions and No use of accessory muscles EFFORT & INSPECTION: Yes tachypneic AUSCULTATION: wheezes Cardio: COMMON NORMALS: regular rhythm and No murmurs present (Cardio) RATE: tachycardic RHYTHM: regular rhythm GI: COMMON NORMALS: Normal to inspection, nondistended, normoactive bowel sounds present, Soft to palpation, non-tender and no masses PALPATION: Yes Soft to palpation Extremity: COMMON NORMALS: normal to inspection and full ROM Neuro: COMMON NORMALS: patient oriented x3, moves all extremities and no focal motor deficits Psych: COMMON NORMALS: mental status grossly normal, Normal thought process present and cooperative THOUGHT PROCESS: Normal thought process present Skin: COMMON NORMALS: no rashes or lesions noted and no wounds GENERAL SKIN EXAM: no rashes or lesions noted Course Vital Signs: Vital signs: Vital Signs Temperature 99.4 F 08/12/22 19:01 Pulse Rate 126 H 08/12/22 19:31 Respiratory Rate 30 H 08/12/22 19:29 Blood Pressure 136/94 08/12/22 19:01 Pulse Oximetry 96 08/12/22 19:29 Oxygen Delivery Me thod 08/12/22 19:29 MDM - Chest Pain Medical Decision Making Patient presents here with shortness of breath no chest pain he has extensive history of COPD and believes his chest pain is likely from his breathing is sharp in nature his troponins here are normal his D-dimer is negative no signs of pulmonary embolism or acute coronary syndrome he feels much improved here after breathing treatment and steroids we will place him on prednisone he is to follow-up his PCP in 2 to 4 days and return if worsening he understands agrees to plan. Lab Data 08/12/22 19:20 08/12/22 19:20 Radiology Impressions Chest X-Ray 08/12/22 19:14 IMPRESSION: 1. No acute findings. 2. Stable chest from 08/25/2020. Laboratory Results WBC 11.0 10^3/uL (4.0-10.0) H 08/12/22 19:20 RBC 4.98 10^6/uL (4.1-5.3) 08/12/22 19:20 Hgb 15.5 g/dL (11.7-16.6) 08/12/22 19:20 Hct 46.1 % (42.0-52.0) 08/12/22 19:20 MCV 92.6 fl (80-94) 08/12/22 19:20 MCH 31.1 pg (28.0-34.0) 08/12/22 19:20 MCHC 33.6 g/dL (30.0-36.0) 08/12/22 19:20 RDW 12.8 % (12.1-15.1) 08/12/22 19:20 Plt Count 249 10^3/cmm (130-400) 08/12/22 19:20 MPV 9.9 fL (7.4-10.4) 08/12/22 19:20 Neut % (Auto) 66.2 % 08/12/22 19:20 Lymph % (Auto) 23.7 % 08/12/22 19:20 [place] % (Auto) 4.5 % 08/12/22 19:20 Eos % (Auto) 4.8 % 08/12/22 19:20 Baso % (Auto) 0.6 % 08/12/22 19:20 Neut # (Auto) 7.27 10^3/uL (1.8-7.7) 08/12/22 19:20 Lymph # (Auto) 2.6 10^3/uL (0.8-4.8) 08/12/22 19:20 [place] # (Auto) 0.5 10^3/uL (0.2-0.9) 08/12/22 19:20 Eos # (Auto) 0.5 10^3/uL (0.0-0.8) 08/12/22 19:20 Baso # (Auto) 0.1 10^3/uL (0.0-0.1) 08/12/22 19:20 Nucleated RBC % (auto) 0 % 08/12/22 19:20 Nucleated RBCs # 0.0 /100WBC 08/12/22 19:20 D-Dimer 0.29 ug/mIFEU (0-0.59) 08/12/22 19:20 Sodium 140 mmol/L (136-145) 08/12/22 19:20 Potassium 4.4 mmol/L (3.5-5.1) 08/12/22 19:20 Chloride 102 mmol/L (98-107) 08/12/22 19:20 Carbon Dioxide 29 mmol/L (22-29) 08/12/22 19:20 Anion Gap 13.4 (5-19) 08/12/22 19:20 BUN 14 mg/dL (8-23) 08/12/22 19:20 Creatinine 0.9 mg/dL (0.7-1.2) 08/12/22 19:20 GFR Calculation 85.0 mL/min (90-130) L 08/12/22 19:20 Glucose 95 mg/dL (65-115) 08/12/22 19:20 Calculated Osmolality 290 mOsm/kg (285-295) 08/12/22 19:20 Calcium 10.6 mg/dL (8.5-10.5) H 08/12/22 19:20 Total Bilirubin 0.5 mg/dL (0.15-1.2) 08/12/22 19:20 AST 22 U/L (0-40) 08/12/22 19:20 ALT 28 U/L (0-41) 08/12/22 19:20 Alkaline Phosphatase 125 U/L (40-130) 08/12/22 19:20 Troponin T Baseline 11 ng/L (0-15) 08/12/22 19:20 Troponin T 120 Minute 8.68 ng/L (0-15) 08/12/22 20:55 Total Protein 7.7 g/dL (6.6-8.7) 08/12/22 19:20 Albumin 4.5 g/dL (3.5-5.2) 08/12/22 19:20 Globulin 3.2 g/dL (1.3-4.6) 08/12/22 19:20 Influenza Type A Ag negative (Negative) 08/12/22 20:02 Influenza Type B Ag negative (Negative) 08/12/22 20:02 SARS-CoV-2 Ag (Rapid) negative (Negative) 08/12/22 20:02 EKG Data EKG 1: I personally reviewed and interpreted this EKG as follows: EKG interpretation date: 08/12/22 EKG interpretation time: 19:03 Interpretation: sinus tach hr [address] or t wave abnormalities qrs 93 qtc 380 EKG 2: I personally reviewed and interpreted this EKG as follows: EKG interpretation date: 08/12/22 EKG interpretation time: 19:51 Interpretation: nsr hr [address] or t wave abnormalities qrs 92 qtc 380 Discharge Plan Discharge Patient Disposition: Home Clinical Impression: COPD exacerbation, Chest pain Condition: Stable Prescriptions: New prednisone 50 mg tablet 50 mg PO DAILY Qty: 5 0RF No Action Xolair 150 mg/mL Syringe See Rx Instructions .ROUTE .COMPLEX Rx Instructions: 375 mg subcutaneously every 2 weeks albuterol sulfate 2.5 mg /3 mL (0.083 %) Solution For Nebulization 2.5 mg INHALATION QID PRN (Reason: Shortness Of Breath) budesonide 0.5 mg/2 mL Suspension For Nebulization 0.5 mg INHALATION BID arformoterol [Brovana] 15 mcg/2 mL Solution For Nebulization 15 mcg INHALATION BID ibuprofen [Advil] 200 mg Tablet 200 mg PO Q6H PRN (Reason: Pain) montelukast 10 mg Tablet 10 mg PO DAILY levocetirizine [Xyzal] 5 mg Tablet 5 mg PO DAILY Discharge Orders: Discharge ED (Routine); Ordered 08/12/22 Ordered By: Quinn Salgado Referrals: Ricardo Prasad MD [Primary Care Provider] - 1-3 days Discharge Diet: Advance as tolerated Discharge Activity: Resume usual activity Patient Instructions: Chest Pain (ED), COPD (Chronic Obstructive Pulmonary Disease) (ED) Coding Level of Care Code ED Medicare Sales Representative for Chg Fwd Exam Comprehensive
[2022-08-12 19:41] LABS: D Dimer 0.29 ug/mIFEU (0-0.59)
[2022-08-12 19:53] LABS: Alanine Aminotransferase 28 U/L (0-41); Albumin Level 4.5 g/dL (3.5-5.2); Alkaline Phosphatase 125 U/L (40-130); Anion Gap 13.4 (5-19); Aspartate Amino Transferase 22 U/L (0-40); Blood Urea Nitrogen 14 mg/dL (8-23); Calcium 10.6 mg/dL (8.5-10.5); Carbon Dioxide 29 mmol/L (22-29); Chloride 102 mmol/L (98-107); Creatinine Clr Calc Pharmacy 88.6099; Globulin 3.2 g/dL (1.3-4.6); Glucose 95 mg/dL (65-115); Osmolality Calculated 290 mOsm/kg (285-295); Potassium 4.4 mmol/L (3.5-5.1); Sodium 140 mmol/L (136-145); Total Bilirubin 0.5 mg/dL (0.15-1.2); Total Protein 7.7 g/dL (6.6-8.7)
[2022-08-12 19:55] LABS: Troponin(5th) Baseline 11 ng/L (0-15)
[2022-08-12] MEDS: aspirin 81 mg Chew Tablet 324 MG PO (19:55)
[2022-08-12] MEDS: acetaminophen 325 mg Tablet 650 MG PO (19:57)
[2022-08-12 20:37] LABS: Influenza A by IFA negative (Negative); Influenza B by IFA negative (Negative); SARS Covid-2 Antigen negative (Negative)
[2022-08-12 21:29] LABS: Troponin 5 2HR 8.68 ng/L (0-15)
--- NOTE | 2022-08-12 21:52 | ECG_ITS ---
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 Measurements Intervals [place] Rate: 78 P: 65 GA: 161 QRS: 74 QRSD: 83 T: 52 QT: 344 QTc: 394 Interpretive Statements SINUS RHYTHM WITH SINUS ARRHYTHMIA POSSIBLE RIGHT VENTRICULAR CONDUCTION DELAY [RSR (QR) IN V1/V2] Compared to ECG 08/12/2022 19:51:50 Incomplete right bundle-branch block no longer present Electronically Signed On 08-13-2022 14:48:19 BISQUE WARE DIPPER by Jacob Gibson M.D. [id number]
[2022-08-12 22:25] LABS: Troponin 5 2HR Delta -2.32 ABS# (0-10)
== END 2022-08-12 22:14 | disposition home or self-care (01) ==
PROVIDERS: Emergency Provider Emergency Medicine; PCP Family Medicine
DX: R07.9 Chest pain, unspecified (principal); J44.1 Chronic obstructive pulmonary disease with (acute) exacerbation; Z87.891 Personal history of nicotine dependence; Z20.822 Contact with and (suspected) exposure to COVID-19
CPT/HCPCS: 36415; 71045; 80053; 84484; 85025; 85378; 87426; 87804; 93005; 94640; 96374; 99285; J2930; J7613; J7644

== ENCOUNTER 2022-08-19 10:50 | Outpatient (RCR) | payer MEDICARE, BC, SELFPAY ==
[2022-08-05 10:54] VITALS: BP 137/72; PULSE 67; RESP 18; TEMP 36.9; O2SAT 97
[2022-08-05] MEDS: omalizumab 150 mg/mL SYR SUBCUT ×2 (10:57)
[2022-08-19 11:00] VITALS: BP 125/75; PULSE 79; RESP 18; TEMP 36.2; O2SAT 98
[2022-08-19] MEDS: omalizumab 150 mg/mL SYR SUBCUT ×2 (11:05)
== END 2022-08-27 23:59 | disposition home or self-care (01) ==
LOC: GILAB 10:50
PROVIDERS: PCP Family Medicine; Visit Provider Internal Medicine Pulmonary Disease
DX: J45.50 Severe persistent asthma, uncomplicated (principal)
CPT/HCPCS: 96372; J2357

== ENCOUNTER 2022-09-16 10:47 | Outpatient (RCR) | payer MEDICARE, BC, SELFPAY ==
[2022-09-02 10:55] VITALS: BP 128/78; PULSE 62; RESP 18; TEMP 36.4; O2SAT 98
[2022-09-02] MEDS: omalizumab 150 mg/mL SYR SUBCUT ×2 (10:55→10:56)
[2022-09-16 10:55] VITALS: BP 112/75; PULSE 75; RESP 18; TEMP 36.8; O2SAT 98
[2022-09-16] MEDS: omalizumab 150 mg/mL SYR SUBCUT ×2 (10:58)
== END 2022-09-24 23:59 | disposition home or self-care (01) ==
LOC: GILAB 10:47
PROVIDERS: PCP Family Medicine; Visit Provider Internal Medicine Pulmonary Disease
DX: J45.50 Severe persistent asthma, uncomplicated (principal)
CPT/HCPCS: 96372; J2357

== ENCOUNTER 2022-10-14 10:19 | Outpatient (RCR) | payer MEDICARE, BC, SELFPAY ==
[2022-09-30 11:00] VITALS: BP 97/76; PULSE 100; RESP 18; TEMP 36.8; O2SAT 94
[2022-09-30] MEDS: omalizumab 150 mg/mL SYR SUBCUT ×2 (11:00)
[2022-10-14 10:20] VITALS: BP 150/83; PULSE 78; RESP 18; TEMP 36.7; O2SAT 95
[2022-10-14] MEDS: omalizumab 150 mg/mL SYR SUBCUT ×2 (10:24→10:25)
== END 2022-10-25 23:59 | disposition home or self-care (01) ==
LOC: GILAB 10:19
PROVIDERS: PCP Family Medicine; Visit Provider Internal Medicine Pulmonary Disease
DX: J45.50 Severe persistent asthma, uncomplicated (principal)
CPT/HCPCS: 96372; J2357

== ENCOUNTER 2022-11-11 10:23 | Outpatient (RCR) | payer MEDICARE, SELFPAY ==
[2022-10-28 10:50] VITALS: BP 114/70; PULSE 74; RESP 18; TEMP 36.6; O2SAT 95
[2022-10-28] MEDS: omalizumab 150 mg/mL SYR SUBCUT ×2 (11:07→11:08)
[2022-11-11 10:30] VITALS: BP 113/73; PULSE 72; RESP 18; TEMP 36.9; O2SAT 99
[2022-11-11] MEDS: omalizumab 150 mg/mL SYR SUBCUT ×2 (10:31)
== END 2022-11-24 23:59 | disposition home or self-care (01) ==
LOC: GILAB 10:23
PROVIDERS: PCP Family Medicine; Visit Provider Internal Medicine Pulmonary Disease
DX: J45.50 Severe persistent asthma, uncomplicated (principal)
CPT/HCPCS: 96372; J2357

== ENCOUNTER 2022-12-24 10:44 | Outpatient (RCR) | payer MEDICARE, SELFPAY ==
[2022-11-26] MEDS: omalizumab 150 mg/mL SYR SUBCUT ×2 (10:31)
[2022-11-26 10:45] VITALS: BP 137/83; PULSE 95; RESP 18; TEMP 36.9; O2SAT 96
[2022-12-09] MEDS: omalizumab 150 mg/mL SYR SUBCUT ×2 (10:49)
[2022-12-09 10:59] VITALS: BP 114/73; PULSE 86; RESP 18; TEMP 37.1; O2SAT 95
[2022-12-24 10:50] VITALS: BP 123/73; PULSE 68; RESP 18; TEMP 36.8; O2SAT 96
[2022-12-24] MEDS: omalizumab 150 mg/mL SYR SUBCUT ×2 (10:52)
== END 2022-12-25 23:59 | disposition home or self-care (01) ==
LOC: GILAB 10:44
PROVIDERS: PCP Family Medicine; Visit Provider Internal Medicine Pulmonary Disease
DX: J45.50 Severe persistent asthma, uncomplicated (principal)
CPT/HCPCS: 96372; J2357

== ENCOUNTER 2023-01-20 10:55 | Outpatient (RCR) | payer MEDICARE, SELFPAY ==
[2023-01-06] MEDS: omalizumab 150 mg/mL SYR SUBCUT ×2 (10:56)
[2023-01-06 11:00] VITALS: BP 120/72; PULSE 69; RESP 18; TEMP 36.8; O2SAT 96
[2023-01-20 11:00] VITALS: BP 125/81; PULSE 87; RESP 18; TEMP 37; O2SAT 94
[2023-01-20] MEDS: omalizumab 150 mg/mL SYR SUBCUT ×2 (11:02→11:03)
== END 2023-01-24 23:59 | disposition home or self-care (01) ==
LOC: GILAB 10:55
PROVIDERS: PCP Family Medicine; Visit Provider Internal Medicine Pulmonary Disease
DX: J45.50 Severe persistent asthma, uncomplicated (principal)
CPT/HCPCS: 96372; J2357

== ENCOUNTER 2023-02-17 10:45 | Outpatient (RCR) | payer MEDICARE, SELFPAY ==
[2023-02-03] MEDS: omalizumab 150 mg/mL SYR SUBCUT ×2 (10:30→10:31)
[2023-02-03 10:40] VITALS: BP 121/76; PULSE 70; RESP 18; TEMP 36.4; O2SAT 96
[2023-02-17 10:50] VITALS: BP 130/79; PULSE 73; RESP 18; TEMP 36.8; O2SAT 95
[2023-02-17] MEDS: omalizumab 150 mg/mL SYR SUBCUT ×2 (10:53)
== END 2023-02-24 23:59 | disposition home or self-care (01) ==
LOC: GILAB 10:45
PROVIDERS: PCP Family Medicine; Visit Provider Internal Medicine Pulmonary Disease
DX: J45.50 Severe persistent asthma, uncomplicated (principal); Z79.899 Other long term (current) drug therapy
CPT/HCPCS: 96372; J2357

== ENCOUNTER 2023-03-17 10:25 | Outpatient (RCR) | payer MEDICARE, SELFPAY ==
[2023-03-03 10:30] VITALS: BP 138/75; PULSE 82; RESP 18; TEMP 35.9; O2SAT 95
[2023-03-03] MEDS: omalizumab 150 mg/mL SYR SUBCUT ×2 (10:36)
[2023-03-17 10:30] VITALS: BP 133/79; PULSE 77; RESP 18; TEMP 36.2; O2SAT 93
[2023-03-17] MEDS: omalizumab 150 mg/mL SYR SUBCUT ×2 (10:31)
== END 2023-03-27 23:59 | disposition home or self-care (01) ==
LOC: GILAB 10:25
PROVIDERS: PCP Family Medicine; Visit Provider Internal Medicine Pulmonary Disease
DX: J45.50 Severe persistent asthma, uncomplicated (principal)
CPT/HCPCS: 96372; J2357

== ENCOUNTER 2023-04-14 10:38 | Outpatient (RCR) | payer MEDICARE, SELFPAY ==
[2023-04-01 10:23] VITALS: BP 120/72; PULSE 66; RESP 18; TEMP 36.8; O2SAT 95
[2023-04-01] MEDS: omalizumab 150 mg/mL SYR SUBCUT ×2 (10:24)
[2023-04-14] MEDS: omalizumab 150 mg/mL SYR SUBCUT ×2 (10:44)
[2023-04-14 10:45] VITALS: BP 120/72; PULSE 72; RESP 18; TEMP 36.8; O2SAT 94
== END 2023-04-26 23:59 | disposition home or self-care (01) ==
LOC: GILAB 10:38
PROVIDERS: PCP Family Medicine; Visit Provider Internal Medicine Pulmonary Disease
DX: J45.50 Severe persistent asthma, uncomplicated (principal)
CPT/HCPCS: 96372; J2357

== ENCOUNTER 2023-05-26 07:53 | Outpatient (RCR) | payer MEDICARE, SELFPAY ==
[2023-04-28 10:17] VITALS: BP 148/75; PULSE 76; RESP 18; TEMP 36.8; O2SAT 94
[2023-04-28] MEDS: omalizumab 150 mg/mL SYR SUBCUT ×2 (10:21→10:22)
[2023-05-12] MEDS: omalizumab 150 mg/mL SYR SUBCUT ×2 (10:25)
[2023-05-12 10:27] VITALS: BP 127/81; PULSE 83; RESP 18; TEMP 36.6; O2SAT 98
[2023-05-26 08:00] VITALS: BP 137/84; PULSE 67; RESP 18; TEMP 36.4; O2SAT 98
[2023-05-26] MEDS: omalizumab 150 mg/mL SYR SUBCUT ×2 (08:00)
== END 2023-05-27 23:59 | disposition home or self-care (01) ==
LOC: GILAB 07:53
PROVIDERS: PCP Family Medicine; Visit Provider Internal Medicine Pulmonary Disease
DX: J45.50 Severe persistent asthma, uncomplicated (principal)
CPT/HCPCS: 96372; J2357

== ENCOUNTER 2023-06-23 10:18 | Outpatient (RCR) | payer MEDICARE, SELFPAY ==
[2023-06-06 10:25] VITALS: BP 116/78; PULSE 74; RESP 18; TEMP 36.8; O2SAT 96
[2023-06-06] MEDS: omalizumab 150 mg/mL SYR SUBCUT ×2 (10:28→10:29)
[2023-06-23 10:20] VITALS: BP 116/84; PULSE 71; RESP 18; TEMP 36.8; O2SAT 97
[2023-06-23] MEDS: omalizumab 150 mg/mL SYR SUBCUT ×2 (10:29)
== END 2023-06-26 23:59 | disposition home or self-care (01) ==
LOC: GILAB 10:18
PROVIDERS: PCP Family Medicine; Visit Provider Internal Medicine Pulmonary Disease
DX: J45.50 Severe persistent asthma, uncomplicated (principal)
CPT/HCPCS: 96372; J2357

== ENCOUNTER 2023-07-24 11:00 | Oncology outpatient (recurring) (ONCR) | payer MEDICARE, SELFPAY ==
[2023-07-10] MEDS: OMALIZUMAB 375 MG SUBCUT (10:22)
[2023-07-24 11:45] VITALS: BP 122/78; PULSE 78; RESP 18; TEMP 36.4; O2SAT 98
[2023-07-24 12:05] VITALS: BP 120/78; PULSE 78; RESP 18; TEMP 36.6; O2SAT 98
[2023-07-24] MEDS: OMALIZUMAB 375 MG SUBCUT (12:05)
== END 2023-07-27 23:59 | disposition home or self-care (01) ==
PROVIDERS: PCP Family Medicine; Visit Provider Internal Medicine Pulmonary Disease
DX: Z53.9 Procedure and treatment not carried out, unspecified reason (principal); J45.909 Unspecified asthma, uncomplicated
CPT/HCPCS: 96372; 96401; J2357

== ENCOUNTER 2023-08-21 10:45 | Oncology outpatient (recurring) (ONCR) | payer MEDICARE, SELFPAY ==
[2023-08-07 10:27] VITALS: BP 125/85; PULSE 82; RESP 16; TEMP 36.9; O2SAT 96
[2023-08-07] MEDS: OMALIZUMAB 375 MG SUBCUT (10:52)
[2023-08-21] MEDS: OMALIZUMAB 375 MG SUBCUT (10:40)
[2023-08-21 10:41] VITALS: BP 136/82; PULSE 62; RESP 16; TEMP 37.3; O2SAT 96
== END 2023-08-27 23:59 | disposition home or self-care (01) ==
PROVIDERS: PCP Family Medicine; Visit Provider Internal Medicine Pulmonary Disease
DX: J45.909 Unspecified asthma, uncomplicated (principal); Z53.9 Procedure and treatment not carried out, unspecified reason
CPT/HCPCS: 96372; J2357

== ENCOUNTER 2023-09-18 10:00 | Oncology outpatient (recurring) (ONCR) | payer MEDICARE, SELFPAY ==
[2023-09-04] MEDS: OMALIZUMAB 375 MG SUBCUT (09:56)
[2023-09-04 10:00] VITALS: BP 139/92; PULSE 99; TEMP 36.8; O2SAT 96
[2023-09-18] MEDS: OMALIZUMAB 375 MG SUBCUT (10:01)
[2023-09-18 10:05] VITALS: BP 139/85; PULSE 79; TEMP 36.6; O2SAT 96
== END 2023-09-25 23:59 | disposition home or self-care (01) ==
PROVIDERS: PCP Family Medicine; Visit Provider Internal Medicine Pulmonary Disease
DX: J45.909 Unspecified asthma, uncomplicated (principal); Z53.9 Procedure and treatment not carried out, unspecified reason
CPT/HCPCS: 96372; J2357

== ENCOUNTER 2023-10-16 10:30 | Oncology outpatient (recurring) (ONCR) | payer MEDICARE, SELFPAY ==
[2023-10-02 10:49] VITALS: BP 140/85; PULSE 74; RESP 16; TEMP 36.9; O2SAT 94
[2023-10-02] MEDS: OMALIZUMAB 375 MG SUBCUT (10:50)
[2023-10-16 10:35] VITALS: BP 149/77; PULSE 80; RESP 16; O2SAT 98
[2023-10-16] MEDS: OMALIZUMAB 375 MG SUBCUT (10:44)
== END 2023-10-26 23:59 | disposition home or self-care (01) ==
PROVIDERS: PCP Family Medicine; Visit Provider Internal Medicine Pulmonary Disease
DX: Z53.9 Procedure and treatment not carried out, unspecified reason (principal); J45.909 Unspecified asthma, uncomplicated
CPT/HCPCS: 96372; J2357

== ENCOUNTER 2023-11-13 10:30 | Oncology outpatient (recurring) (ONCR) | payer MEDICARE, SELFPAY ==
[2023-10-30 10:25] VITALS: BP 147/89; PULSE 68; RESP 16; TEMP 36.3; O2SAT 99
[2023-10-30] MEDS: OMALIZUMAB 375 MG SUBCUT (10:27)
[2023-11-13 13:04] VITALS: BP 144/87; PULSE 73; RESP 18; TEMP 37.2; O2SAT 97
[2023-11-13] MEDS: OMALIZUMAB 375 MG SUBCUT (13:06)
== END 2023-11-25 23:59 | disposition home or self-care (01) ==
PROVIDERS: PCP Family Medicine; Visit Provider Internal Medicine Pulmonary Disease
DX: Z53.9 Procedure and treatment not carried out, unspecified reason (principal); J45.909 Unspecified asthma, uncomplicated
CPT/HCPCS: 96372; J2357

== ENCOUNTER 2023-12-25 10:30 | Oncology outpatient (recurring) (ONCR) | payer MEDICARE, SELFPAY ==
[2023-11-27] MEDS: OMALIZUMAB 375 MG SUBCUT (10:32)
[2023-11-27 10:33] VITALS: BP 135/89; PULSE 74; TEMP 36.9; O2SAT 95
[2023-12-11] MEDS: OMALIZUMAB 375 MG SUBCUT (10:18)
[2023-12-11 10:19] VITALS: BP 120/81; PULSE 62; RESP 18; TEMP 37.3; O2SAT 99
[2023-12-25] MEDS: OMALIZUMAB 375 MG SUBCUT (11:00)
[2023-12-25 11:01] VITALS: BP 132/73; PULSE 69; RESP 146; TEMP 36.5; O2SAT 97
== END 2023-12-25 23:59 | disposition home or self-care (01) ==
PROVIDERS: PCP Family Medicine; Visit Provider Internal Medicine Pulmonary Disease
DX: Z53.9 Procedure and treatment not carried out, unspecified reason (principal); J45.909 Unspecified asthma, uncomplicated
CPT/HCPCS: J2357

== ENCOUNTER 2024-01-22 10:00 | Oncology outpatient (recurring) (ONCR) | payer MEDICARE, SELFPAY ==
[2024-01-08 10:20] VITALS: BP 138/84; PULSE 67; RESP 16; TEMP 36.7; O2SAT 95
[2024-01-08] MEDS: OMALIZUMAB 375 MG SUBCUT (10:21)
[2024-01-22 10:49] VITALS: BP 127/81; PULSE 67; RESP 16; O2SAT 94
[2024-01-22] MEDS: OMALIZUMAB 375 MG SUBCUT (10:56)
== END 2024-01-25 23:59 | disposition home or self-care (01) ==
PROVIDERS: PCP Family Medicine; Visit Provider Internal Medicine Pulmonary Disease
DX: J45.909 Unspecified asthma, uncomplicated (principal); Z53.9 Procedure and treatment not carried out, unspecified reason
CPT/HCPCS: J2357

== ENCOUNTER 2024-02-19 10:00 | Oncology outpatient (recurring) (ONCR) | payer MEDICARE, SELFPAY ==
[2024-02-05 10:44] VITALS: BP 144/90; PULSE 76; RESP 18; O2SAT 98
[2024-02-05] MEDS: OMALIZUMAB 375 MG SUBCUT (10:45)
[2024-02-19 11:01] VITALS: BP 119/72; PULSE 71; RESP 16; TEMP 36.4; O2SAT 93
[2024-02-19] MEDS: OMALIZUMAB 375 MG SUBCUT (11:02)
== END 2024-02-25 23:59 | disposition home or self-care (01) ==
PROVIDERS: PCP Family Medicine; Visit Provider Internal Medicine Pulmonary Disease
DX: J45.909 Unspecified asthma, uncomplicated (principal); Z53.9 Procedure and treatment not carried out, unspecified reason; Z79.899 Other long term (current) drug therapy
CPT/HCPCS: 96372; J2357

== ENCOUNTER 2024-03-18 10:00 | Oncology outpatient (recurring) (ONCR) | payer MEDICARE, SELFPAY ==
[2024-03-04] MEDS: OMALIZUMAB 375 MG SUBCUT (09:55)
[2024-03-18] MEDS: OMALIZUMAB 375 MG SUBCUT (09:55)
== END 2024-03-27 23:59 | disposition home or self-care (01) ==
PROVIDERS: PCP Family Medicine; Visit Provider Internal Medicine Pulmonary Disease
DX: Z53.9 Procedure and treatment not carried out, unspecified reason (principal); J45.909 Unspecified asthma, uncomplicated; Z79.899 Other long term (current) drug therapy
CPT/HCPCS: 96372; J2357

== ENCOUNTER 2024-04-15 09:44 | Oncology outpatient (recurring) (ONCR) | payer MEDICARE, SELFPAY ==
[2024-04-01] MEDS: OMALIZUMAB 375 MG SUBCUT (10:23)
[2024-04-01 10:29] VITALS: BP 134/88; PULSE 74; RESP 20; TEMP 36.7; O2SAT 96
[2024-04-15] MEDS: OMALIZUMAB 375 MG SUBCUT (10:00)
== END 2024-04-26 23:59 | disposition home or self-care (01) ==
PROVIDERS: PCP Family Medicine; Visit Provider Internal Medicine Pulmonary Disease
DX: Z53.9 Procedure and treatment not carried out, unspecified reason; J45.909 Unspecified asthma, uncomplicated; Z79.899 Other long term (current) drug therapy
CPT/HCPCS: 96372; J2357

== ENCOUNTER 2024-05-27 10:00 | Oncology outpatient (recurring) (ONCR) | payer MEDICARE, SELFPAY ==
[2024-04-29] MEDS: OMALIZUMAB 375 MG SUBCUT (10:20)
[2024-05-13 10:01] VITALS: BP 151/96; PULSE 84; RESP 17; TEMP 37.1; O2SAT 97
[2024-05-13] MEDS: OMALIZUMAB 375 MG SUBCUT (10:04)
[2024-05-27] MEDS: OMALIZUMAB 375 MG SUBCUT (10:22)
== END 2024-05-27 23:59 | disposition home or self-care (01) ==
PROVIDERS: PCP Family Medicine; Visit Provider Internal Medicine Pulmonary Disease
DX: Z53.9 Procedure and treatment not carried out, unspecified reason; Z79.899 Other long term (current) drug therapy; J45.909 Unspecified asthma, uncomplicated
CPT/HCPCS: 96372; J2357

== ENCOUNTER 2024-06-10 09:51 | Oncology outpatient (recurring) (ONCR) | payer MEDICARE, SELFPAY ==
[2024-06-10 10:23] VITALS: PULSE 76; RESP 18; TEMP 36.5; O2SAT 99
[2024-06-10] MEDS: OMALIZUMAB 375 MG SUBCUT (10:25)
[2024-06-10 10:26] VITALS: BP 101/66
== END 2024-06-26 23:59 | disposition home or self-care (01) ==
LOC: ONCMED 09:51
PROVIDERS: PCP Family Medicine; Visit Provider Internal Medicine Pulmonary Disease
DX: J45.909 Unspecified asthma, uncomplicated (principal); Z79.899 Other long term (current) drug therapy
CPT/HCPCS: 96401; J2357

== ENCOUNTER 2024-07-26 10:00 | Oncology outpatient (recurring) (ONCR) | payer MEDICARE, SELFPAY ==
[2024-06-28] MEDS: OMALIZUMAB 375 MG SUBCUT (10:33)
[2024-07-12] MEDS: OMALIZUMAB 375 MG SUBCUT (10:21)
[2024-07-26] MEDS: OMALIZUMAB 375 MG SUBCUT (10:20)
== END 2024-07-26 23:59 | disposition home or self-care (01) ==
PROVIDERS: PCP Family Medicine; Visit Provider Internal Medicine Pulmonary Disease
DX: Z53.9 Procedure and treatment not carried out, unspecified reason (principal); J45.909 Unspecified asthma, uncomplicated; Z79.899 Other long term (current) drug therapy
CPT/HCPCS: 96372; J2357

== ENCOUNTER 2024-08-23 11:00 | Oncology outpatient (recurring) (ONCR) | payer MEDICARE, SELFPAY ==
[2024-08-09] MEDS: OMALIZUMAB 375 MG SUBCUT (11:23)
[2024-08-09 11:26] VITALS: BP 129/91; PULSE 82; O2SAT 95
[2024-08-23] MEDS: OMALIZUMAB 375 MG SUBCUT (10:57)
[2024-08-23 11:36] VITALS: BP 152/102; PULSE 84; RESP 18; TEMP 36.9; O2SAT 96
== END 2024-08-27 23:59 | disposition home or self-care (01) ==
PROVIDERS: PCP Family Medicine; Visit Provider Internal Medicine Pulmonary Disease
DX: Z53.9 Procedure and treatment not carried out, unspecified reason (principal); L40.8 Other psoriasis; L82.1 Other seborrheic keratosis; J45.909 Unspecified asthma, uncomplicated; L57.8 Other skin changes due to chronic exposure to nonionizing radiation; D69.2 Other nonthrombocytopenic purpura; Z79.899 Other long term (current) drug therapy
CPT/HCPCS: 17000; 96372; 99204; J2357

== ENCOUNTER 2024-09-20 11:02 | Oncology outpatient (recurring) (ONCR) | payer MEDICARE, SELFPAY ==
[2024-09-06] MEDS: OMALIZUMAB 375 MG SUBCUT (11:05)
[2024-09-20] MEDS: OMALIZUMAB 375 MG SUBCUT (11:53)
[2024-09-20 12:00] VITALS: BP 114/76; PULSE 77; TEMP 37.3; O2SAT 96
== END 2024-09-24 23:59 | disposition home or self-care (01) ==
PROVIDERS: PCP Family Medicine; Visit Provider Internal Medicine Pulmonary Disease
DX: J45.909 Unspecified asthma, uncomplicated (principal); Z79.899 Other long term (current) drug therapy
CPT/HCPCS: 96372; J2357

== ENCOUNTER 2024-10-18 10:50 | Oncology outpatient (recurring) (ONCR) | payer MEDICARE, SELFPAY ==
[2024-10-04] MEDS: OMALIZUMAB 375 MG SUBCUT (10:52)
[2024-10-18] MEDS: OMALIZUMAB 375 MG SUBCUT (11:23)
[2024-10-18 11:30] VITALS: BP 133/89; PULSE 71; RESP 18; TEMP 36.8; O2SAT 94
== END 2024-10-25 23:59 | disposition home or self-care (01) ==
PROVIDERS: PCP Family Medicine; Visit Provider Internal Medicine Pulmonary Disease
DX: J45.909 Unspecified asthma, uncomplicated (principal); Z79.899 Other long term (current) drug therapy
CPT/HCPCS: J2357

== ENCOUNTER 2024-11-15 11:00 | Oncology outpatient (recurring) (ONCR) | payer MEDICARE, SELFPAY ==
[2024-11-01] MEDS: OMALIZUMAB 375 MG SUBCUT (11:21)
[2024-11-15] MEDS: OMALIZUMAB 375 MG SUBCUT (11:12)
== END 2024-11-24 23:59 | disposition home or self-care (01) ==
PROVIDERS: PCP Family Medicine; Visit Provider Internal Medicine Pulmonary Disease
DX: Z53.9 Procedure and treatment not carried out, unspecified reason; J45.909 Unspecified asthma, uncomplicated; Z79.899 Other long term (current) drug therapy
CPT/HCPCS: 96401; J2357

== ENCOUNTER 2024-12-13 10:46 | Oncology outpatient (recurring) (ONCR) | payer MEDICARE, SELFPAY ==
[2024-11-29] MEDS: OMALIZUMAB 375 MG SUBCUT (11:11)
[2024-11-29 11:15] VITALS: BP 126/74; PULSE 68; RESP 16; TEMP 36.6; O2SAT 96
[2024-12-13] MEDS: OMALIZUMAB 375 MG SUBCUT (11:26)
== END 2024-12-25 23:59 | disposition home or self-care (01) ==
PROVIDERS: PCP Family Medicine; Visit Provider Internal Medicine Pulmonary Disease
DX: Z53.9 Procedure and treatment not carried out, unspecified reason; J45.909 Unspecified asthma, uncomplicated; Z79.899 Other long term (current) drug therapy
CPT/HCPCS: 96372; J2357

== ENCOUNTER → 2024-12-21 14:06 | Outpatient (BNVA) | payer MEDICARE, SELFPAY | PROVIDERS: PCP Family Medicine; Visit Provider Nurse Practitioner Family | DX: L40.8 Other psoriasis (principal); L82.1 Other seborrheic keratosis; D69.2 Other nonthrombocytopenic purpura; L57.8 Other skin changes due to chronic exposure to nonionizing radiation; L73.9 Follicular disorder, unspecified | CPT/HCPCS: 99214 ==

== ENCOUNTER 2025-01-24 14:19 | Oncology outpatient (recurring) (ONCR) | payer MEDICARE, SELFPAY ==
[2024-12-27] MEDS: OMALIZUMAB 375 MG SUBCUT (13:39)
[2025-01-10] MEDS: OMALIZUMAB 375 MG SUBCUT (14:27)
[2025-01-24] MEDS: OMALIZUMAB 375 MG SUBCUT (14:41)
== END 2025-01-24 23:59 | disposition home or self-care (01) ==
PROVIDERS: PCP Family Medicine; Visit Provider Internal Medicine Pulmonary Disease
DX: J45.909 Unspecified asthma, uncomplicated; Z79.899 Other long term (current) drug therapy; Z53.9 Procedure and treatment not carried out, unspecified reason
CPT/HCPCS: 96372; J2357

== ENCOUNTER 2025-02-21 14:20 | Oncology outpatient (recurring) (ONCR) | payer MEDICARE, SELFPAY ==
[2025-02-21 15:03] VITALS: BP 142/76; PULSE 74; RESP 16; TEMP 36.8; O2SAT 94
== END 2025-02-24 23:59 | disposition home or self-care (01) ==
PROVIDERS: PCP Family Medicine; Visit Provider Internal Medicine Pulmonary Disease
DX: J45.909 Unspecified asthma, uncomplicated (principal); Z79.899 Other long term (current) drug therapy
CPT/HCPCS: 96372; J2357

== ENCOUNTER 2025-03-21 14:13 | Oncology outpatient (recurring) (ONCR) | payer MEDICARE, SELFPAY | END 2025-03-27 23:59 | disposition home or self-care (01) | PROVIDERS: PCP Family Medicine; Visit Provider Internal Medicine Pulmonary Disease | DX: J45.909 Unspecified asthma, uncomplicated (principal); Z79.899 Other long term (current) drug therapy | CPT/HCPCS: 96372; J2357 ==

== ENCOUNTER 2025-04-18 14:30 | Oncology outpatient (recurring) (ONCR) | payer MEDICARE, SELFPAY | END 2025-04-26 23:59 | disposition home or self-care (01) | PROVIDERS: PCP Family Medicine; Visit Provider Internal Medicine Pulmonary Disease | DX: J45.909 Unspecified asthma, uncomplicated; Z79.899 Other long term (current) drug therapy; Z53.9 Procedure and treatment not carried out, unspecified reason | CPT/HCPCS: 96372; 96401; J2357 ==

== ENCOUNTER 2025-05-05 18:14 | Emergency (ER) | payer MEDICARE, SELFPAY ==
[2025-05-05] VITALS (9 sets, daily range): BP systolic 118–162; BP diastolic 68–93; PULSE 63–89; RESP 14–20; TEMP 36.4; O2SAT 93–100
--- NOTE | 2025-05-05 18:55 | ECG_ITS ---
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
--- NOTE | 2025-05-05 18:55 | XRR_ITS ---
PROCEDURE INFORMATION: Exam: XR Chest Exam date and time: 05/05/2025 7:06 PM Age: 69 years old Clinical indication: Pain; Chest pressure; Additional info: Chest pain TECHNIQUE: Imaging protocol: Radiologic exam of the chest. Views: 1 view. COMPARISON: CR (CHEST, ) 08/12/2022 7:40 PM FINDINGS: Lungs: Unremarkable. No consolidation. Pleural spaces: Unremarkable. No pleural effusion. No pneumothorax. Heart/Mediastinum: Unremarkable. No cardiomegaly. Bones/joints: Small osteophytes thoracic spine. XR/XR chest 1V portable [id number] IMPRESSION: No acute findings.
--- NOTE | 2025-05-05 18:55 | W.ED.CHESTPA ---
HPI - Chest Pain General: Chief Complaint: Chest Pain Stated Complaint: N/V, Headache Time Seen by Provider: 05/05/25 18:51 Related Data Home Medications ?Medication ?Instructions ?Recorded ?Confirmed albuterol sulfate 2.5 mg/3 mL 2.5 mg inhalation QID PRN 08/10/19 06/06/23 (0.083 %) solution for nebulization Shortness Of Breath arformoterol 15 mcg/2 mL solution 15 mcg inhalation BID 08/10/19 06/06/23 for nebulization (Brovana) budesonide 0.5 mg/2 mL suspension 0.5 mg inhalation BID 08/10/19 06/06/23 for nebulization ibuprofen 200 mg tablet (Advil) 200 mg PO Q6H PRN Pain 08/10/19 06/06/23 levocetirizine 5 mg tablet (Xyzal) 5 mg PO DAILY 08/10/19 06/06/23 montelukast 10 mg tablet 10 mg PO DAILY 08/10/19 06/06/23 omalizumab 150 mg/mL subcutaneous See Rx Instructions .Route .COMPLEX 03/16/20 06/06/23 syringe (Xolair) Previous Rx's ?Medication ?Instructions ?Recorded prednisone 50 mg tablet 50 mg PO DAILY #5 tabs 08/12/22 Allergies Allergy/AdvReac Type Severity Reaction Status Date / Time No Known Allergies Allergy Verified 04/28/23 10:29 [facility] ED PFSH: Medical History (Updated 07/10/23 @ 09:37 by Luz Marina Bartlett RN) Asthma Social History (Updated 08/12/22 @ 21:56 by Quinn Salgado MD) Smoking and tobacco/nicotine status: former use of tobacco/nicotine Course Vital Signs: Vital signs: Vital Signs Temperature 97.5 F L 05/05/25 18:21 Pulse Rate 89 05/05/25 18:21 Respiratory Rate 20 H 05/05/25 18:21 Blood Pressure 128/78 05/05/25 18:21 Pulse Oximetry 99 05/05/25 18:21 Oxygen Delivery Me thod Room Air 05/05/25 18:21 MDM - Chest Pain Lab Data Laboratory Results POC Glucose 91 mg/dL (70-110) 05/05/25 18:32 Discharge Plan Discharge Condition: Stable Prescriptions: No Action Xolair 150 mg/mL Syringe See Rx Instructions .ROUTE .COMPLEX Rx Instructions: 375 mg subcutaneously every 2 weeks albuterol sulfate 2.5 mg /3 mL (0.083 %) Solution For Nebulization 2.5 mg INHALATION QID PRN (Reason: Shortness Of Breath) budesonide 0.5 mg/2 mL Suspension For Nebulization 0.5 mg INHALATION BID arformoterol [Brovana] 15 mcg/2 mL Solution For Nebulization 15 mcg INHALATION BID ibuprofen [Advil] 200 mg Tablet 200 mg PO Q6H PRN (Reason: Pain) montelukast 10 mg Tablet 10 mg PO DAILY levocetirizine [Xyzal] 5 mg Tablet 5 mg PO DAILY prednisone 50 mg tablet 50 mg PO DAILY Qty: 5 0RF Referrals: Ricardo Prasad MD [Primary Care Provider, Family Practice] Print Language: Burundian Coding Level of Care Code ED Consumer Relations Specialist for Nasra Good
[2025-05-05 19:02] LABS: Hematocrit 44.5 % (37-53); Hemoglobin 15.20 g/dL (11.27-16.99); Mean Corpuscular HGB Conc 34.2 g/dL (30-55); Mean Corpuscular Hemoglobin 31.6 pg (27-33); Mean Corpuscular Volume 92.5 fl (82-101); Nucleated Red Blood Cells % 0 %; Platelet Count 245 10^3/cmm (157-399); Red Blood Count 4.81 10^6/uL (3.85-5.65); White Blood Count 9.21 10^3/uL (3.29-11.43)
[2025-05-05 19:20] LABS: Troponin(5th) Baseline 12 ng/L (0-15)
[2025-05-05 19:27] LABS: NT Pro B Type Natriuretic Pept 43 pg/mL (0-125)
--- NOTE | 2025-05-05 19:51 | CTR_ITS ---
PROCEDURE INFORMATION: Exam: CT Abdomen And Pelvis With Contrast Exam date and time: 05/05/2025 9:30 PM Age: 69 years old Clinical indication: Abdominal pain; Prior surgery; Surgery date: 6+ months; Surgery type: Appy in ; Patient reports he has had n/v x2 days and reports left sided chest pain, body aches all over. Patient reports light headedness when he stands and is very shakey. ; Additional info: 1 day worsening abd pain/vomiting, remote HX complicated appendectomy in TECHNIQUE: Imaging protocol: Computed tomography of the abdomen and pelvis with contrast. Radiation optimization: All CT scans at this facility use at least one of these dose optimization techniques: automated exposure control; mA and/or kV adjustment per patient size (includes targeted exams where dose is matched to clinical indication); or iterative reconstruction. Contrast material: [id number]; Contrast volume: 100 ml; Contrast route: INTRAVENOUS (IV); Other contrast: Oral, [id number], 20ml mixed with water; COMPARISON: CR (CHEST, ) 05/05/2025 7:06 PM RADIATION DOSE METRICS: Total DLP (mGy-cm): 479 FINDINGS: Tubes, catheters and devices: Probable mild sigmoid diverticulitis without focal fluid collection amenable to percutaneous drainage. Lungs: 1.5 cm nodule at the left lung base, consider tissue diagnosis if not already performed by Fleischner society guidelines. Liver: Normal. No mass. Gallbladder and biliary ducts: Normal. No calcified stones. No ductal dilation. Pancreas: Normal. No ductal dilation. Spleen: Normal. No splenomegaly. Adrenal glands: Normal. No mass. Kidneys and ureters: Nonobstructing left renal calculus. Stomach and bowel: Unremarkable. No obstruction. No mucosal thickening. Appendix: No evidence of appendicitis. Intraperitoneal space: Unremarkable. No free air. No significant fluid collection. Vasculature: Aortic atherosclerosis. Lymph nodes: Unremarkable. No enlarged lymph nodes. Urinary bladder: Unremarkable as visualized. Reproductive: Moderate to severe prostatomegaly. Bones/joints: [id number] degenerative changes of the lumbar vertebral bodies. Soft tissues: Unremarkable. CT/CT abdomen pelvis w con* [id number] IMPRESSION: 1. Probable mild sigmoid diverticulitis without focal fluid collection amenable to percutaneous drainage. 2. 1.5 cm nodule at the left lung base, consider tissue diagnosis if not already performed by Fleischner society guidelines. 3. Nonobstructing left renal calculus.
[2025-05-05] MEDS: ondansetron 2 mg/ML SDV 2 mL 4 MG IVP (19:57)
[2025-05-05] MEDS: morphine 4 mg/mL SDV 1 mL IVP (19:59)
[2025-05-05 20:14] LABS: Respiratory Syncytial Virus Ce NEGATIVE (Negative); SARS-CoV-2 PCR NEGATIVE (Negative)
--- NOTE | 2025-05-05 20:23 | W.ED.CHESTPA ---
HPI - Chest Pain General: Chief Complaint: Chest Pain Stated Complaint: N/V, Headache Time Seen by Provider: 05/05/25 18:51 History of Present Illness: 69-year-old male past medical history significant for COPD, presenting with onset yesterday of 1 episode of diarrhea followed by onset of recurrent and repetitive nonbloody vomiting times innumerable episodes with increasing abdominal pain now to 9 out of 10, associated with tremors to the body as well as generalized fatigue times today, no fevers but did not have a thermometer to check his temperature, also reports substernal chest pain that started after the initial symptoms and noticed them today, no associated shortness of breath, no cough, no urinary symptoms, no preceding signs of illness or infection in the last few days prior to yesterday, no suspicious food intake. Remote history of a complicated open appendectomy performed in the s, no other abdominal surgical history Related Data Home Medications ?Medication ?Instructions ?Recorded ?Confirmed albuterol sulfate 2.5 mg/3 mL 2.5 mg inhalation QID PRN 08/10/19 06/06/23 (0.083 %) solution for nebulization Shortness Of Breath arformoterol 15 mcg/2 mL solution 15 mcg inhalation BID 08/10/19 06/06/23 for nebulization (Brovana) budesonide 0.5 mg/2 mL suspension 0.5 mg inhalation BID 08/10/19 06/06/23 for nebulization ibuprofen 200 mg tablet (Advil) 200 mg PO Q6H PRN Pain 08/10/19 06/06/23 levocetirizine 5 mg tablet (Xyzal) 5 mg PO DAILY 08/10/19 06/06/23 montelukast 10 mg tablet 10 mg PO DAILY 08/10/19 06/06/23 omalizumab 150 mg/mL subcutaneous See Rx Instructions .Route .COMPLEX 03/16/20 06/06/23 syringe (Xolair) Previous Rx's ?Medication ?Instructions ?Recorded prednisone 50 mg tablet 50 mg PO DAILY #5 tabs 08/12/22 amoxicillin 400 mg-potassium 10 ml PO BID 7 days #140 mL 05/05/25 clavulanate 57 mg/5 mL oral suspension famotidine 20 mg tablet (Pepcid) 20 mg PO BID 2 weeks #28 tabs 05/05/25 ibuprofen 600 mg tablet 600 mg PO Q8H PRN pain #30 tabs 05/05/25 ondansetron HCl 8 mg tablet 8 mg PO Q8H PRN nausea and 05/05/25 vomiting 5 days #20 tabs Allergies Allergy/AdvReac Type Severity Reaction Status Date / Time No Known Allergies Allergy Verified 04/28/23 10:29 [facility] PFSH: Medical History Asthma Social History Smoking and tobacco/nicotine status: former use of tobacco/nicotine Physical Exam Narrative: EXAM NARRATIVE: Gen: A&Ox4, no acute distress, nontoxic appearing HEENT: Normocephalic, atraumatic, no scleral icterus, external ears normal, dry mucous membranes Neck: Supple, full range of motion, no observable masses Lungs: No Respiratory distress, Lungs clear to auscultation bilaterally no rales, rhonchi, wheezing CV: Mildly tachycardic with normal rhythm, no murmur, no pitting edema to lower extremities bilaterally Abdomen: Soft, nondistended, tender to palpation diffusely without rebound or guarding, extensive surgical scars noted to the abdomen and left flank MSK: No joint swelling, FROM all 4 extremities Skin: No rashes, petechiae, lesions. Normal color per patient. Neuro: Alert and oriented, no slurred speech, sensation and strength grossly intact all 4 extremities Psych: Appropriate for situation. 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 Time: 23:18 Reevaluation #2: Patient with another episode of vomiting at time of discharge, is requesting an oral Zofran prior to leaving, he still appears well, will trial outpatient management the patient understands he can return to the ER if he is unable to keep food fluids down or his symptoms worsen to be admitted for inpatient treatment Time: 23:45 Vital Signs: Vital signs: Vital Signs Temperature 97.5 F L 05/05/25 18:21 Pulse Rate 71 05/05/25 23:05 Respiratory Rate 14 05/05/25 23:05 Blood Pressure 118/93 05/05/25 23:05 Pulse Oximetry 93 05/05/25 23:05 Oxygen Delivery Me thod Room Air 05/05/25 20:05 MDM - Chest Pain Medical Decision Making 69-year-old male history of asthma/COPD, presenting to the emergency department with onset yesterday of diarrhea x 1 episode followed by more significant repetitive vomiting and increasing abdominal pain, today with chest pain, no diaphoresis, patient appears shaky tremulous and hypovolemic on exam but otherwise nontoxic, normal pulmonary auscultation no evidence of COPD exacerbation, EKG without evidence of STEMI or acute ischemia, plan for abdominal pain workup, cardiac screen with serial enzymes, fluid hydration and supportive care for pain, CT abdomen rule out surgical or infectious abdominal pathology, reassess for disposition. Low initial concern for ACS given description of complaints and and tested in vomiting and abdominal pain prior to onset of chest pain. Lab Data Labs showing no leukocytosis or anemia, no acute kidney injury, normal LFTs 05/05/25 18:42 05/05/25 18:42 Radiology Impressions Chest X-Ray 05/05/25 18:55 IMPRESSION: No acute findings. Abdomen/Pelvis CT 05/05/25 19:51 IMPRESSION: 1. Probable mild sigmoid diverticulitis without focal fluid collection amenable to percutaneous drainage. 2. 1.5 cm nodule at the left lung base, consider tissue diagnosis if not already performed by Fleischner society guidelines. 3. Nonobstructing left renal calculus. Laboratory Results WBC 9.21 10^3/uL (3.29-11.43) 05/05/25 18:42 RBC 4.81 10^6/uL (3.85-5.65) 05/05/25 18:42 Hgb 15.20 g/dL (11.27-16.99) 05/05/25 18:42 Hct 44.5 % (37-53) 05/05/25 18:42 MCV 92.5 fl (82-101) 05/05/25 18:42 MCH 31.6 pg (27-33) 05/05/25 18:42 MCHC 34.2 g/dL (30-55) 05/05/25 18:42 RDW 13.2 % (12.1-15.1) 05/05/25 18:42 Plt Count 245 10^3/cmm (157-399) 05/05/25 18:42 MPV 10.1 fL (7.4-10.4) 05/05/25 18:42 Neut % (Auto) 71.7 % 05/05/25 18:42 Lymph % (Auto) 19.2 % 05/05/25 18:42 Howard % (Auto) 4.9 % 05/05/25 18:42 Eos % (Auto) 3.4 % 05/05/25 18:42 Baso % (Auto) 0.7 % 05/05/25 18:42 Neut # (Auto) 6.61 10^3/uL (1.8-7.7) 05/05/25 18:42 Lymph # (Auto) 1.8 10^3/uL (0.8-4.8) 05/05/25 18:42 Howard # (Auto) 0.5 10^3/uL (0.2-0.9) 05/05/25 18:42 Eos # (Auto) 0.3 10^3/uL (0.0-0.8) 05/05/25 18:42 Baso # (Auto) 0.1 10^3/uL (0.0-0.1) 05/05/25 18:42 Nucleated RBC % (auto) 0 % 05/05/25 18:42 Nucleated RBCs # 0.0 /100WBC 05/05/25 18:42 Sodium 144 mmol/L (136-145) 05/05/25 18:42 Potassium 4.3 mmol/L (3.5-5.1) 05/05/25 18:42 Chloride 102 mmol/L (98-107) 05/05/25 18:42 Carbon Dioxide 24 mmol/L (22-29) 05/05/25 18:42 Anion Gap 22.3 (5-19) H 05/05/25 18:42 BUN 16 mg/dL (8-23) 05/05/25 18:42 Creatinine 0.9 mg/dL (0.7-1.2) 05/05/25 18:42 GFR Calculation 84.2 mL/min (90-130) L 05/05/25 18:42 Glucose 94 mg/dL (65-115) 05/05/25 18:42 POC Glucose 91 mg/dL (70-110) 05/05/25 18:32 Calculated Osmolality 299 mOsm/kg (285-295) H 05/05/25 18:42 Calcium 10.0 mg/dL (8.5-10.5) 05/05/25 18:42 Total Bilirubin 0.7 mg/dL (0.15-1.2) 05/05/25 18:42 AST 19 U/L (0-40) 05/05/25 18:42 ALT 22 U/L (0-41) 05/05/25 18:42 Alkaline Phosphatase 135 U/L (40-130) H 05/05/25 18:42 Troponin T Baseline 12 ng/L (0-15) 05/05/25 18:42 Troponin T 120 Minute 12.42 ng/L (0-15) 05/05/25 20:41 Delta Troponin T 0.42 ABS# (0-10) 05/05/25 20:41 NT-Pro-B Natriuret Pep 43 pg/mL (0-125) 05/05/25 18:42 Total Protein 7.8 g/dL (6.6-8.7) 05/05/25 18:42 Albumin 5.0 g/dL (3.5-5.2) 05/05/25 18:42 Globulin 2.8 g/dL (1.3-4.6) 05/05/25 18:42 Lipase 22 U/L (13-60) 05/05/25 18:42 Influenza A (PCR) Negative (Negative) 05/05/25 19:34 Influenza Type B (PCR) Negative (Negative) 05/05/25 19:34 RSV (PCR) Negative (Negative) 05/05/25 19:34 SARS-CoV-2 (PCR) Negative (Negative) 05/05/25 19:34 All radiology interpretation(s) finalized by discharge ED provider radiology interpretation(s): CXR negative for pneumonia/pneumothorax/pulmonary edema CT showing mild sigmoid diverticulitis without perforation or abscess EKG Data EKG 1: I personally reviewed and interpreted this EKG as follows: EKG interpretation date: 05/05/25 EKG interpretation time: 20:30 Prior EKG tracings: available for review Interpretation: Sinus rhythm at 70 bpm with sinus arrhythmia, no STEMI, no ectopy, QTc 400 ms, borderline right axis deviation EKG 2: I personally reviewed and interpreted this EKG as follows: EKG interpretation date: 05/05/25 EKG interpretation time: 21:47 Interpretation: Sinus rhythm at 70 bpm with sinus arrhythmia, no STEMI, no ectopy, normal axis, QTc 409 ms Discharge Plan Discharge Patient Disposition: Home Clinical Impression: Diverticulitis of sigmoid colon, Acute dehydration Condition: Stable Prescriptions: New amoxicillin-pot clavulanate 400-57 mg/5 mL suspension for reconstitution 10 ml PO BID 7 Days Qty: 140 0RF ondansetron HCl 8 mg tablet 8 mg PO Q8H PRN (Reason: nausea and vomiting) 5 Days Qty: 20 0RF famotidine [Pepcid] 20 mg tablet 20 mg PO BID 14 Days Qty: 28 0RF ibuprofen 600 mg tablet 600 mg PO Q8H PRN (Reason: pain) Qty: 30 0RF No Action Xolair 150 mg/mL Syringe See Rx Instructions .ROUTE .COMPLEX Rx Instructions: 375 mg subcutaneously every 2 weeks albuterol sulfate 2.5 mg /3 mL (0.083 %) Solution For Nebulization 2.5 mg INHALATION QID PRN (Reason: Shortness Of Breath) budesonide 0.5 mg/2 mL Suspension For Nebulization 0.5 mg INHALATION BID arformoterol [Brovana] 15 mcg/2 mL Solution For Nebulization 15 mcg INHALATION BID ibuprofen [Advil] 200 mg Tablet 200 mg PO Q6H PRN (Reason: Pain) montelukast 10 mg Tablet 10 mg PO DAILY levocetirizine [Xyzal] 5 mg Tablet 5 mg PO DAILY prednisone 50 mg tablet 50 mg PO DAILY Qty: 5 0RF Discharge Orders: Discharge ED (Routine); Ordered 05/05/25 Ordered By: Ihsan Green Referrals: Ricardo Prasad MD [Primary Care Provider, Family Practice] Discharge Diet: Advance as tolerated Patient Instructions: Diverticulitis (DC), Patient Portal & [place] Instructions, Vomiting - Adult Activity Restrictions/Additional Instructions: You were seen in the emergency department for recurrent vomiting and abdominal pain, your blood work was reassuring and your CT scan showed a mild infection in your large intestine which can be treated with antibiotics, I have prescribed you medication for your vomiting and pain as well as antibiotics to treat the infection, I recommend you come back to the ER if you symptoms fail to improve, if you are unable to tolerate the medications and become dehydrated due to vomiting, or if you develop a fever. Print Language: [place] Zealander Coding Level of Care Code ED Zoology Technical Officer for Chg Fwd Heart Score HEART Score Components History: Slightly Suspicous EKG: Non-specific Changes Age: 65 or more yrs Risk Factors: 1 or 2 Risk Factors Troponin: Baseline Trop <16 ng/L HEART Score RESULT HEART Score: 4
[2025-05-05 20:28] LABS: Alanine Aminotransferase 22 U/L (0-41); Albumin Level 5.0 g/dL (3.5-5.2); Alkaline Phosphatase 135 U/L (40-130); Anion Gap 22.3 (5-19); Aspartate Amino Transferase 19 U/L (0-40); Blood Urea Nitrogen 16 mg/dL (8-23); Calcium 10.0 mg/dL (8.5-10.5); Carbon Dioxide 24 mmol/L (22-29); Chloride 102 mmol/L (98-107); Creatinine Clr Calc Pharmacy 84.0901; Globulin 2.8 g/dL (1.3-4.6); Glucose 94 mg/dL (65-115); Osmolality Calculated 299 mOsm/kg (285-295); Potassium 4.3 mmol/L (3.5-5.1); Sodium 144 mmol/L (136-145); Total Protein 7.8 g/dL (6.6-8.7)
[2025-05-05] MEDS: iohexol 350 mg/mL 500 mL Btl (per mL) PO (20:30)
[2025-05-05 20:46] LABS: Lipase 22 U/L (13-60)
--- NOTE | 2025-05-05 20:55 | ECG_ITS ---
[facility] Date: 2025-05-05 Pat Name: Kal Elias Department: Room: Gender: Male Tax Auditor: : 1955 Requested By: Ying Pruitt Order Number: [id number] Kell MD: CINTHYA MORA Measurements Intervals Adams Rate: 78 P: 77 [place]: 155 QRS: 82 QRSD: 83 T: 51 QT: 376 QTc: 430 Interpretive Statements SINUS RHYTHM WITH SINUS ARRHYTHMIA Compared to ECG 05/05/2025 18:26:57 No significant changes Electronically Signed On 05-08-2025 23:31:45 CDT by CINTHYA MORA [email or web address]
[2025-05-05 21:02] LABS: Troponin 5 2HR 12.42 ng/L (0-15); Troponin 5 2HR Delta 0.42 ABS# (0-10)
[2025-05-05] MEDS: iohexol 350 mg/mL 500 mL Btl (per mL) IV (21:32)
[2025-05-05] MEDS: metoclopramide 5 mg/mL SDV 2 mL 10 MG IVP (22:14)
[2025-05-05] MEDS: amoxicillin-clav 250-62.5 mg/5 mL 100 mL Bulk 875 MG PO (23:00)
[2025-05-05] MEDS: oxyCODONE-APAP 10-325 mg Tablet 1 TAB PO (23:34)
[2025-05-05] MEDS: ondansetron hcl ODT 4 mg Tab 8 MG PO (23:46)
== END 2025-05-05 23:55 | disposition home or self-care (01) ==
PROVIDERS: Physician Assistant; Emergency Provider Student in an Organized Health Care Education/Training Program; PCP Family Medicine
DX: K57.32 Diverticulitis of large intestine without perforation or abscess without bleeding (principal); E86.0 Dehydration; Z11.52 Encounter for screening for COVID-19; Z87.891 Personal history of nicotine dependence; J44.9 Chronic obstructive pulmonary disease, unspecified
CPT/HCPCS: 36415; 36416; 71045; 74177; 80053; 82962; 83690; 83880; 84484; 85025; 87637; 93005; 96361; 96374; 96375; 99285; J2270; J2405; J2765; J3490; J7030; J9999; Q0162

== ENCOUNTER 2025-05-16 14:30 | Oncology outpatient (recurring) (ONCR) | payer MEDICARE, SELFPAY | END 2025-05-27 23:59 | disposition home or self-care (01) | PROVIDERS: PCP Family Medicine; Visit Provider Internal Medicine Pulmonary Disease | DX: J45.909 Unspecified asthma, uncomplicated; Z79.899 Other long term (current) drug therapy; Z53.9 Procedure and treatment not carried out, unspecified reason | CPT/HCPCS: 96372; J2357 ==

== ENCOUNTER 2025-06-13 14:30 | Oncology outpatient (recurring) (ONCR) | payer MEDICARE, SELFPAY ==
[2025-06-13 14:31] VITALS: BP 122/68; PULSE 84; O2SAT 96
== END 2025-06-26 23:59 | disposition home or self-care (01) ==
PROVIDERS: PCP Family Medicine; Visit Provider Internal Medicine Pulmonary Disease
DX: J45.909 Unspecified asthma, uncomplicated; Z79.899 Other long term (current) drug therapy; Z53.9 Procedure and treatment not carried out, unspecified reason
CPT/HCPCS: 96372; J2357

== ENCOUNTER 2025-07-25 14:21 | Oncology outpatient (recurring) (ONCR) | payer MEDICARE, SELFPAY ==
[2025-07-11 14:52] VITALS: BP 123/80; PULSE 81; RESP 16; O2SAT 96
[2025-07-25 14:49] VITALS: BP 128/78; PULSE 66; RESP 16; O2SAT 95
== END 2025-07-25 23:59 | disposition home or self-care (01) ==
PROVIDERS: PCP Family Medicine; Visit Provider Internal Medicine Pulmonary Disease
DX: J45.909 Unspecified asthma, uncomplicated (principal); Z79.899 Other long term (current) drug therapy
CPT/HCPCS: 96372; J2357